=== PATIENT | female | born 1945 | race Caucasian/White ===

== ENCOUNTER 2019-08-23 23:02 | Inpatient (IN) | payer MEDICARE, SELFPAY ==
[2019-08-28] VITALS (11 sets, daily range): BP systolic 153–169; BP diastolic 66–97; PULSE 77–94; RESP 14–29; TEMP 36.4–36.8; O2SAT 93–97; BMI 21.5
[2019-08-28] MEDS: ipratropium-albuterol 3 mL Neb INHALATION ×3 (03:45→22:55)
[2019-08-28 05:32] LABS: Anion Gap 13.3 (5-19); Blood Urea Nitrogen 28 mg/dL (8-23); Carbon Dioxide 30 mmol/L (22-29); Chloride 98 mmol/L (98-107); Glucose 155 mg/dL (74-106); Potassium 5.3 mmol/L (3.5-5.1); Sodium 136 mmol/L (136-145)
[2019-08-28] MEDS: FUROsemide 20 mg Tablet PO (08:46)
[2019-08-28] MEDS: cefTRIAXone 1,000 MG in sodium chloride 0.9% (plus) 50 ML 100 MG IV (08:48)
[2019-08-28] MEDS: aspirin 81 mg Chew Tablet PO (08:49)
[2019-08-28] MEDS: amlodipine 10 mg Tablet PO (08:49)
[2019-08-28] MEDS: levothyroxine 100 mcg Tablet PO (08:51)
[2019-08-28] MEDS: hyDRALAzine 10 mg Tablet 5 MG PO ×2 (08:55→14:35)
[2019-08-28] MEDS: ALPRAZolam 0.25 mg Tablet PO (14:51)
--- NOTE | 2019-08-28 15:24 | PC.SOCIAL ---
IMM Updated Pt & family updated on Pg 2 IMM. Provided a copy to pt. No questions voiced. Signed, dated, & timed original in chart.
--- NOTE | 2019-08-28 18:26 | PM.PN ---
Subjective Subjective: Interval history: Her family felt that she was feeling weaker today. She wakes up for me, states that she is feeling about the same. Denies any complaints at this time. She knows she is in the hospital. Does not remember the current year. Vitals/I&O/Wt Last Vital Signs Temp 98.2 F 08/28/19 18:00 Pulse 92 08/28/19 18:00 Resp 22 H 08/28/19 18:00 BP 169/95 08/28/19 18:00 Pulse Ox 93 08/28/19 18:00 08/28/19 08/28/19 08/28/19 06:59 14:59 22:59 Intake Total 200 / 200 480 / 480 Balance 200 / 200 480 / 480 Weight last 48 hrs Weight 53.524 kg Weight 53.524 kg Weight 53.524 kg Physical Exam Const: COMMON NORMALS: no apparent distress GENERAL APPEARANCE: frail appearing OTHER: Generally weak. HENMT: COMMON NORMALS: oropharynx normal Neck/C-Spine: COMMON NORMALS: no JVD Resp: COMMON NORMALS: normal respiratory effort AUSCULTATION: diminished lung sounds Cardio: COMMON NORMALS: no JVD, regular rhythm, S1 normal heart sound, S2 normal heart sound and no murmurs RHYTHM: regular rhythm HEART SOUNDS: S1 normal and S2 normal GI: COMMON NORMALS: normal to inspection, nondistended, normoactive bowel sounds, soft to palpation and non-tender PALPATION: Yes soft Extremity: COMMON NORMALS: no joint enlargement and no pedal edema Skin: COMMON NORMALS: no rashes or lesions noted GENERAL SKIN EXAM: no rashes or lesions noted Data Labs: Other Labs: All Labs last 24 hrs except CBC/BMP 08/28/19 04:25 Calcium 10.0 A&P Assessment and plan (1) Acute respiratory failure: She was perhaps slightly more confused today. Slightly tremulous. Discussed with family, perhaps secondary to IV steroids. Her respiratory exam is somewhat better today, without wheezing. Still restricted air entry. Discussed with family given mental status may be secondary some adverse effects from steroid will de-escalate to oral prednisone for now. Continue breathing treatments. Continue oxygen support. Continue Rocephin as for UTI. 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 Currently encephalopathy resolved. Some cognitive deficits likely due to multiple prior CVA. Currently perhaps with encephalopathy secondary to UTI and COPD exacerbation. At this time continue aspirin 81 mg, statin. No clear evidence of atrial fibrillation. Has had a few rounds of SVT, however, with discernible P waves. Given elevated risk of bleeding with amyloid angiopathy would like to see clear evidence of A. fib before consideration of initiation of anticoagulation. Discussed this with her and family and they are in agreement. Consider setting up with event monitor on discharge. Poorly controlled hypertension with variable blood pressures, with multiple prior CVA, appears to be her biggest risk factor at this time, also in the setting of amyloid angiopathy. Lisinopril was discontinued due to hyperkalemia. Continues on 10 mg amlodipine. Was started on 5 mg hydralazine 3 times daily, although blood pressures are still on the high side. Will increase hydralazine to 10 mg. Status: Acute Code(s): I63.9 - Cerebral infarction, unspecified; R41.89 - Other symptoms and signs involving cognitive functions and awareness (3) Cerebral amyloid angiopathy: Follow-up with neurology in office. Discussed with her and family regarding concern for risk of bleeding. For now continues on 81 mg aspirin. No clear evidence regarding elevated risk of bleeding with statin. So far no clear evidence of atrial fibrillation in the hospital. Status: Acute Code(s): E85.4 - Organ-limited amyloidosis; I68.0 - Cerebral amyloid angiopathy (4) UTI (urinary tract infection): Continue Rocephin, follow-up urine culture. Status: Acute Code(s): N39.0 - Urinary tract infection, site not specified (5) Dysphagia: Suspect likely secondary to multiple prior CVA. Continue dysphagia diet. Status: Acute Code(s): R13.10 - Dysphagia, unspecified (6) COPD with exacerbation: At home on around 2 L of oxygen. Here requiring about 4 L. With poor air entry. Wheezing on exam, although wheezing is better today. Treatment as above. Status: Acute Code(s): J44.1 - Chronic obstructive pulmonary disease with (acute) exacerbation (7) Liver lesion: Small round hypodense liver lesions difficult to characterize. Would benefit from nonemergent follow-up. Status: Acute Code(s): K76.9 - Liver disease, unspecified (8) Adrenal nodule: 2.3 cm left adrenal gland. Would benefit from follow-up after discharge. Status: Acute Code(s): E27.8 - Other specified disorders of adrenal gland Additional A&P Information Additional A&P Information: Hyperkalemia: Lisinopril held. With mild improvement today. Monitor potassium. Will change to low potassium diet. Right eye conjunctivitis: Resolved Hip and back pain: No evidence of fracture Attestations Medical Necessity Statement*: Continue admission for assessment management of acute respiratory failure, COPD exacerbation, optimization of management of poorly controlled hypertension in the setting of multiple prior CVA and amyloid angiopathy. Coding Level of Care Code Acute Salon Coordinator for [facility] Diagnoses Acute respiratory failure J96.00 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 Cerebral amyloid angiopathy E85.4; I68.0 UTI (urinary tract infection) N39.0 Dysphagia R13.10 COPD with exacerbation J44.1 Liver lesion K76.9 Adrenal nodule E27.8
[2019-08-28] MEDS: atorvastatin 40 mg Tablet PO (22:00)
[2019-08-28] MEDS: hyDRALAzine 10 mg Tablet PO (22:00)
[2019-08-28] MEDS: enoxaparin 40 mg/0.4 mL Syringe SUBCUT (23:12)
[2019-08-29] VITALS (11 sets, daily range): BP systolic 140–146; BP diastolic 58–73; PULSE 78–116; RESP 18–28; TEMP 36.4–36.8; O2SAT 92–98
[2019-08-29] MEDS: ipratropium-albuterol 3 mL Neb INHALATION ×3 (03:24→15:51)
[2019-08-29 04:12] LABS: Basophils % 0.1 %; Hematocrit 41.1 % (37.0-47.0); Hemoglobin 12.3 g/dL (11.5-15.3); Lymphocytes # 0.2 10^3/uL (0.8-4.8); Lymphocytes % 2.1 %; Mean Corpuscular HGB Conc 29.9 g/dL (30.0-36.0); Mean Corpuscular Hemoglobin 28.5 pg (28.0-34.0); Mean Corpuscular Volume 95.1 fL (81-99); Mean Platelet Volume 11.5 fL (7.4-10.4); Monocytes # 0.5 10^3/uL (0.2-0.9); Monocytes % 4.1 %; Neutrophils # 10.4 10^3/uL (1.8-7.7); Neutrophils % 93.3 %; Nucleated Red Blood Cells % 0 %; Platelet Count 312 10^3/cmm (130-400); Red Blood Count 4.32 10^6/uL (4.1-5.3); Red Cell Distribution Width 12.6 % (12.1-15.1); White Blood Count 11.2 10^3/uL (4.0-10.0)
[2019-08-29 04:23] LABS: Add RBC Morph No
[2019-08-29 04:35] LABS: Blood Urea Nitrogen 29 mg/dL (8-23); Calcium 9.7 mg/Dl (8.8-10.2)
[2019-08-29 05:18] LABS: Anion Gap 17.8 (5-19); Carbon Dioxide 28 mmol/L (22-29); Chloride 96 mmol/L (98-107); Glucose 129 mg/dL (74-106); Potassium 4.8 mmol/L (3.5-5.1); Sodium 137 mmol/L (136-145)
[2019-08-29] MEDS: FUROsemide 20 mg Tablet PO (09:26)
[2019-08-29] MEDS: cefTRIAXone 1,000 MG in sodium chloride 0.9% (plus) 50 ML 100 MG IV (09:27)
[2019-08-29] MEDS: amlodipine 10 mg Tablet PO (09:28)
[2019-08-29] MEDS: hyDRALAzine 10 mg Tablet PO ×2 (09:29→14:14)
[2019-08-29] MEDS: levothyroxine 100 mcg Tablet PO (09:29)
[2019-08-29] MEDS: aspirin 81 mg Chew Tablet PO (09:29)
[2019-08-29] MEDS: predniSONE 20 mg Tablet 40 MG PO (09:29)
--- NOTE | 2019-08-29 14:07 | PM.DCS ---
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 Per later discussions with family she has been having some forgetfulness recently, however, usually has been oriented x3, and recognizing family members. Symptoms reportedly started on the day of admission and progressed. Due to unclear cause of acute encephalopathy she underwent additional assessment with thyroid function, initial urine studies, being unremarkable, although with leukocytosis on presentation of 17.4. Shortness of breath thought to be possibly secondary to exacerbation of COPD versus CHF with elevated BNP on presentation. CT chest showed no PE, but findings suggestive of pulmonary hypertension. Moderate to severe centrilobular emphysema. Incidentally found to have small round hypodense liver lesions as well as 2.2 cm left adrenal nodule. Atherosclerosis and coronary disease. Lumbar spine CT without fracture. CT C-spine without acute findings. Mild anterolisthesis C3 over C4. Kyphosis. Head CT without acute abnormality. Right hip x-ray without fracture. Echocardiogram was performed with finding of normal EF, mild MR. blood pressure was found elevated during the hospitalization. On presentation BP 226 systolic. At home she takes hydralazine. In the hospital amlodipine and lisinopril were added. Lisinopril was later discontinued due to progression to hyperkalemia. Cause of encephalopathy was considered secondary to hypertensive urgency on presentation. Due to persistent episodes of confusion, hypertension was evaluated by MRI of the brain which showed multiple remote infarcts including right cerebellar hemisphere, bilateral thalami, and lacunar infarcts of left cerebellar hemisphere and left caudate nucleus with noted evidence of chronic amyloid angiopathy, chronic extensive small vessel ischemic changes, cerebral and cerebellar atrophy. Carotid ultrasound showed bilateral nonsurgically significant atherosclerotic plaques. Urine culture was eventually growing a gram-negative kylah for which she was started on Rocephin, confirmed to be pansensitive E. coli. Her blood pressures gradually improved. With treatment her mental status gradually improved as well. She remained generally weak, also with hypoxia, persistently requiring 3-4 L of oxygen, worse at home usually needs only to. With findings of diminished air entry on exam, wheezing, steroids were added back on, initially IV, subsequently switched to prednisone, she continued breathing treatments. All of that diagnostic findings were discussed with patient and her family. She has continued on 81 mg aspirin. High intensity statin was added as there is no convincing evidence of increased risk of bleeding with amyloid angiopathy. She was monitored on telemetry with noted several episodes of short runs of SVT, however, with noted P waves, and no clear evidence of atrial fibrillation. Discussing multiple CVA with family as well as brief episodes of SVT. We discussed about risk of bleeding with amyloid angiopathy with increasing dose of aspirin or adding a second antiplatelet agent. Similarly without convincing evidence of AFib she would be at risk of bleeding without sufficient evidence of benefit. We will set her up with an event monitor to assess for paroxysmal episodes of atrial fibrillation. As discussed with her and family at this time the primary risk factor that needs attention is definitely her hypertension, with blood pressures that have been running in 160s-170s despite treatment in the hospital. In addition to amlodipine she was started on 5 mg hydralazine 3 times daily which she tolerated, and the dose was increased to 10 mg subsequently with good improvement in blood pressures down to 130s-140s systolic. She will complete a course of Levaquin for UTI and COPD exacerbation. Prednisone taper for COPD. During the hospitalization she was also noted to have dysphagia for which she was assessed by speech therapy with recommendation for chopped diet with nectar thick liquids. Due to multiple CVA and amyloid angiopathy we will arrange for follow-up for her with neurology. She will also need follow-up imaging of the incidentally noted hypodense liver lesions and left adrenal nodule. Physical Exam Const: COMMON NORMALS: no apparent distress EXAM LIMITATIONS: other limitations (Generally weak) GENERAL APPEARANCE: frail appearing HENMT: COMMON NORMALS: oropharynx normal Neck/C-Spine: COMMON NORMALS: no JVD Resp: COMMON NORMALS: normal respiratory effort AUSCULTATION: diminished lung sounds (But significantly better today compared to yesterday. No wheezing.) Cardio: COMMON NORMALS: no JVD, regular rhythm, S1 normal heart sound, S2 normal heart sound and no murmurs RHYTHM: regular rhythm HEART SOUNDS: S1 normal and S2 normal GI: COMMON NORMALS: normal to inspection, nondistended, normoactive bowel sounds, soft to palpation and non-tender PALPATION: Yes soft Extremity: COMMON NORMALS: no joint enlargement and no pedal edema Skin: COMMON NORMALS: no rashes or lesions noted GENERAL SKIN EXAM: no rashes or lesions noted Discharge Data Data Completed and Pending: Labs from last 24 hours 08/29/19 08/29/19 03:25 03:25 WBC 11.2 H RBC 4.32 Hgb 12.3 Hct 41.1 MCV 95.1 MCH 28.5 MCHC 29.9 L RDW 12.6 Plt Count 312 MPV 11.5 H Neut % (Auto) 93.3 Lymph % (Auto) 2.1 Morrill % (Auto) 4.1 Eos % (Auto) 0.0 Baso % (Auto) 0.1 Neut # (Auto) 10.4 H Lymph # (Auto) 0.2 L Morrill # (Auto) 0.5 Eos # (Auto) 0.0 Baso # (Auto) 0.0 Nucleated RBC % (a uto) 0 Nucleated RBCs # 0.0 Sodium 137 Potassium 4.8 Chloride 96 L Carbon Dioxide 28 Anion Gap 17.8 BUN 29 H Creatinine 0.6 Glucose 129 H Calcium 9.7 Vitals: Last Vital Signs Temp 98.2 F 08/29/19 11:37 Pulse 116 H 08/29/19 11:37 Resp 18 08/29/19 11:37 BP 146/58 08/29/19 11:37 Pulse Ox 92 08/29/19 11:37 Discharge Plan Discharge Patient Disposition: [facility] Condition: Stable Prescriptions: New amlodipine 10 mg Tablet 10 mg PO DAILY Qty: 30 RF: 0 furosemide 20 mg Tablet 20 mg PO DAILY@0800 PRN (Reason: Edema) Qty: 15 RF: 0 prednisone 20 mg Tablet 40 mg PO DAILY Qty: 5 RF: 0 aspirin 81 mg Tablet,Chewable 81 mg PO DAILY Qty: 30 RF: 0 atorvastatin 40 mg Tablet 40 mg PO BEDTIME Qty: 30 RF: 0 ipratropium-albuterol 0.5 mg-3 mg(2.5 mg base)/3 mL Solution For Nebulization 3 ml inhalation Q6H.RESPIRATORY Qty: 150 RF: 0 Continued hydralazine 10 mg tablet 10 mg PO TID RF: 0 levothyroxine 100 mcg tablet 100 mcg PO DAILY RF: 0 ProAir HFA 90 mcg/actuation HFA aerosol inhaler 2 puff INHALATION Q4H PRN (Reason: Shortness Of Breath) RF: 0 Bevespi Aerosphere 9-4.8 mcg HFA aerosol inhaler 2 puff INHALATION BID RF: 0 Discharge Orders: Discharge Order (Routine); Ordered 08/29/19 Ordered By: Job Parker Other Ambulatory Orders: [place] 30 day event monitor (Routine) Timeframe: 21 Days Facility: [facility] - Location: Card[facility] Diagnostic [facility] Ordered By: Job Parker Referrals: SNF, PCP [Other] - 4-7 days NEUROSCIENCE PROVIDERS [Provider Group] - 1 week (A) [facility] [Outside] Discharge Diet: Dysphagia, chopped, nectar thick Activity Restrictions/Additional Instructions: Please refer for MRI abdomen w/wo contrast for follow up of hypodense liver lesions and adrenal nodule. Results to PCP. Fall precautions. Aspiration precautions. Please continue dysphagia diet. Continue speech therapy follow-up. Physical therapy, occupational therapy. 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
--- NOTE | 2019-08-30 13:32 | PC.RESP ---
Pt given information for Pulmonary Rehab
== END 2019-08-29 17:20 | disposition skilled nursing facility (03) | DRG 190 ==
PROVIDERS: Admitting Provider Internal Medicine; Family Provider Family Medicine; PCP Family Medicine; Referring Provider Internal Medicine; Visit Provider Internal Medicine
DX: J43.9 Emphysema, unspecified (principal); I50.33 Acute on chronic diastolic (congestive) heart failure; J96.01 Acute respiratory failure with hypoxia; I67.4 Hypertensive encephalopathy; N39.0 Urinary tract infection, site not specified; I47.1 Supraventricular tachycardia; E85.4 Organ-limited amyloidosis; I11.0 Hypertensive heart disease with heart failure; I16.0 Hypertensive urgency; M54.9 Dorsalgia, unspecified; K76.9 Liver disease, unspecified; E27.9 Disorder of adrenal gland, unspecified; E87.6 Hypokalemia; Z66 Do not resuscitate; E78.5 Hyperlipidemia, unspecified; M25.551 Pain in right hip; I69.991 Dysphagia following unspecified cerebrovascular disease; I69.911 Memory deficit following unspecified cerebrovascular disease; R13.10 Dysphagia, unspecified; H10.9 Unspecified conjunctivitis; Z87.891 Personal history of nicotine dependence; B96.20 Unspecified Escherichia coli [E. coli] as the cause of diseases classified elsewhere; Z79.51 Long term (current) use of inhaled steroids; I27.20 Pulmonary hypertension, unspecified; I68.0 Cerebral amyloid angiopathy; Z79.82 Long term (current) use of aspirin
CPT/HCPCS: 36415; 36600; 70450; 70553; 71045; 71275; 72125; 72131; 72220; 73501; 80048; 80053; 80061; 81001; 82088; 82533; 82803; 83036; 83605; 83735; 83880; 84244; 84443; 84484; 85025; 87040; 87086; 87804; 92523; 92526; 92610; 93005; 93306; 93880; 94640; 96374; 97110; 97161; 97167; 97530; 97535; 99285; A9579; J0360; J0696; J1650; J1940; J2920; J2930; J3490; J7512; Q9967

== ENCOUNTER 2019-09-05 18:11 | Inpatient (IN) | payer MEDICARE, SELFPAY ==
[2019-09-05] VITALS (12 sets, daily range): BP systolic 113–160; BP diastolic 59–87; PULSE 68–95; RESP 18–28; TEMP 36.9; O2SAT 93–100; BMI 21.9
--- NOTE | 2019-09-05 16:55 | ED_ITS ---
Entered by Liza Puckett, acting as scribe for LailaAlma HPI - SOB/Dyspnea General: Chief Complaint: Upper Respiratory Infection Stated Complaint: respiratory distress Time Seen by Provider: 09/05/19 16:53 History of Present Illness: HPI Narrative: 74 yo female presents to ED with complaints of shortness of breath. The patient is a resident of a halfway. The patient is currently being treated for pnuemonia. The patient is in severe respiratory distress and all review of systems and physical exam findings are taken from family. MD elicited complaint: shortness of breath Pertinent past history: pneumonia Onset (ago): day(s) Context: recent illness Timing: constant and progressively worsening Severity: severe Exacerbating factors: nothing Relieving factors: nothing Associated symptoms: Deny abdominal pain, chest congestion, chest pain, diaphoresis, dizziness, extremity pain, fever(s), hemoptysis, nausea, orthopnea, palpitations, polydipsia, syncope or vomiting Treatment prior to arrival: oxygen Review of Systems General: Reports: other (negative unless marked) Const: Denies: fever, chills, body aches, fatigue, malaise or diaphoresis Eyes: Denies: change in vision or blurry vision ENMT: Denies: throat pain, painful swallowing, hoarseness, ear pain, ear discharge, Change in hearing or nasal discharge Card: Denies: chest pain, palpitations, irregular heart rhythm, syncope, pre- syncope, shortness of breath on exertion or shortness of breath when lying down Resp: Denies: shortness of breath, productive cough, non-productive cough, whe ezing, coughing up blood or chest congestion GI: Denies: abdominal pain, nausea, vomiting, vomiting blood, coffee grounds in vomit, diarrhea, constipation, cramping, blood in stool or black tarry stool : Denies: flank pain, painful urination, urinary frequency, urinary urgency, decreased urine ouput, urinary incontinence or blood in urine Musc: Denies: neck pain, back pain, extremity pain, extremity swelling, joint pain, joint swelling, joint warmth or joint stiffness Skin/Breast: Denies: rash, skin tenderness or yellow skin Neuro: Denies: headache, numbness in extremities, weakness in extremities, changes in sensation, lack of coordination, difficulty walking, dizziness, vertigo or confusion Endo: Denies: excessive thirst, tired all the time, cold intolerance, excessive sweating, flushing or hot flashes Alfredo/Lymph: Denies: easy bruising, easy bleeding, petechiae or enlarged lymph nodes All/Imm: Denies: hives, throat swelling, tongue swelling, facial swelling or acute wheezing PFSH ED PFSH: Statuses (acute, chronic, etc) shown below reflect problem list status as previously entered and may not be historically accurate Medical History (Updated 09/06/19 @ 12:32 by Alma Ulloa) Cerebral amyloid angiopathy (Acute) Congestive heart failure (Acute) Diastolic COPD (chronic obstructive pulmonary disease) (Acute) CVA (cerebral vascular accident) (Acute) Graves disease (Acute) Radioactive iodine therapy in 1996 Hypertension (Acute) Social History Smoking and tobacco status: former smoker Physical Exam Const: EXAM LIMITATIONS: altered mental status GENERAL APPEARANCE: in distress, ill appearing and diaphoretic HENMT: COMMON NORMALS: normocephalic, head/scalp atraumatic, hearing grossly normal bilaterally, external ears normal, EAC's normal, external nose normal and moist oral mucous membranes HEAD & SCALP: normal to inspection, normocephalic and atraumatic FACE & SINUS: normal facial exam and face symmetric NOSE: external nose normal and nares normal EXTERNAL EAR: Yes external ears normal EXTERNAL AUDITORY CANAL: EAC's normal MOUTH: oral and palatal mucosa normal and tongue normal Eye: COMMON NORMALS: PERRL, EOMs intact bilaterally, conjunctivae normal and no scleral icterus GENERAL EYE: normal appearance of both eyes and normal light reflex CONJUNCTIVA: Yes conjunctivae normal SCLERA: sclerae normal CORNEA: Yes corneas normal PUPIL: Yes PERRL DIRECT OPHTHALMOSCOPY: Yes normal light reflex Neck/C-Spine: COMMON NORMALS: full ROM, no lymphadenopathy, supple, no meningeal signs and no JVD GENERAL: Yes normal visual inspection and Yes trachea midline CERVICAL SPINE: Yes cervical ROM normal Chest: COMMONS NORMALS: inspection of chest normal and palpation of chest normal Resp: EFFORT & INSPECTION: Yes tachypneic, Yes respiratory distress, Yes labored and Yes actively coughing AUSCULTATION: crackles, rales, rhonchi, wheezes and diminished lung sounds Cardio: COMMON NORMALS: no JVD, regular rate, regular rhythm, S1 normal heart sound, S2 normal heart sound, no gallops, no clicks, no murmurs and no rub JUGULAR VENOUS DISTENTION: no JVD RATE: regular rate RHYTHM: regular rhythm HEART SOUNDS: S1 normal and S2 normal GI: COMMON NORMALS: soft to palpation, non-tender, no hepatosplenomegaly and no masses INSPECTION: Yes normal to inspection PALPATION: Yes soft and Yes no hepatosplenomegaly : COMMON NORMALS: Yes no CVA tenderness BLADDER/KIDNEY EXAM: Yes no CVA tenderness Back/Pelvis: COMMON NORMALS: no CVA tenderness, thoracic and lumbar spine normal to inspection, no thoracic nor lumbar tenderness and thoraco-lumbar ROM normal Extremity: COMMON NORMALS: normal to inspection, full ROM, normal capillary refill, no joint enlargement, no clubbing, cyanosis or edema and no calf tenderness Neuro: COMMON NORMALS: CN's II-XII intact bilaterally, moves all extremities, no focal motor deficits and no sensory deficits noted MENINGEAL SIGNS: Yes no meningeal signs Psych: COMMON NORMALS: mental status grossly normal, thought process normal, cooperative, affect normal, speech normal and activity/motor behavior normal SPEECH: Yes normal speech THOUGHT PROCESS: normal thought process Skin: COMMON NORMALS: no rashes or lesions noted, skin turgor normal, no jaundice, no petechiae and no mottling GENERAL SKIN EXAM: no rashes or lesions noted and turgor normal Course Vital Signs: Vital signs: Vital Signs Temperature 98.1 F 09/06/19 11:38 Pulse Rate 83 09/06/19 11:36 Respiratory Rate 20 H 09/06/19 11:38 Blood Pressure 138/63 09/06/19 11:36 Pulse Oximetry 96 09/06/19 11:36 MDM - SOB/Dyspnea MDM Narrative: Medical decision making narrative: The patient came in and was doing better with BiPAP and treatments but after removed from BiPAP she got progressively more sleepy and lethargic. Repeat blood gas revealed the patient was hypercapnic so she was placed back on BiPAP and did much better. The case was endorsed to Dr. Mcnair who agrees to come admit the patient to the ICU. Lab Data: Attestation: I reviewed the patient's lab results. Labs: Lab Results 09/05/19 09/05/19 09/05/19 Range/Units 16:28 16:28 16:28 WBC 13.4 H (4.0-10.0) 10^3/ uL RBC 4.80 (4.1-5.3) 10^6/u L Hgb 13.5 (11.5-15.3) g/dL Hct 45.0 (37.0-47.0) % MCV 93.8 (81-99) fL MCH 28.1 (28.0-34.0) pg MCHC 30.0 (30.0-36.0) g/dL RDW 13.2 (12.1-15.1) % Plt Count 397 (130-400) 10^3/c mm MPV 11.4 H (7.4-10.4) fL Neut % (Auto) 95.0 % Lymph % (Auto) 1.8 % [place] % (Auto) 1.0 % Eos % (Auto) 0.0 % Baso % (Auto) 0.1 % Neut # (Auto) 12.7 H (1.8-7.7) 10^3/u L Lymph # (Auto) 0.2 L (0.8-4.8) 10^3/u L [place] # (Auto) 0.1 L (0.2-0.9) 10^3/u L Eos # (Auto) 0.0 (0.0-0.8) 10^3/u L Baso # (Auto) 0.0 (0.0-0.1) 10^3/u L Nucleated RBC % (a uto) 0 % Nucleated RBCs # 0.0 /100WBC PT 12.50 (10.5-13.3) SECO NDS INR 0.91 (0.8-1.2) D-Dimer (0-0.59) ug/mIFE U Specimen Type Sample Site ABG pH (7.35-7.45) ABG pCO2 (35-45) mmHg ABG pO2 (80.0-100.0) mmH g ABG HCO3 (22-26) mmol/L ABG Base Excess (-2.0-2.0) mmol/ L Wali Test Hematocrit (37-47) % O2 Liters/Min % FiO2 % Permaculture Designer ID Sodium 139 (136-145) mmol/L Potassium 4.6 (3.5-5.1) mmol/L Chloride 95 L (98-107) mmol/L Carbon Dioxide 33 H (22-29) mmol/L Anion Gap 15.6 (5-19) BUN 18 (8-23) mg/dL Creatinine 0.5 (0.5-0.9) mg/dL Glucose 128 H (74-106) mg/dL POC Glucose (70-110) mg/dL Lactic Acid (0.5-2.2) mmol/L Calcium 9.7 (8.8-10.2) mg/Dl Magnesium 2.7 H (1.7-2.3) mg/dL Total Bilirubin 0.3 (0.15-1.2) mg/dL AST 19 (0-32) U/L ALT 22 (0-33) U/L Alkaline Phosphata se 118 H (35-105) IU/L Troponin I 6 Hour (0-10) ng/L Troponin T Baselin e (0-10) ng/mL Troponin T 120 Min sun'aq (0-10) ng/mL Delta Troponin T (0-10) ABS# NT-Pro-B Natriuret Pep 316 H (0-125) pg/mL Total Protein 7.3 (6.6-8.7) g/dL Albumin 4.3 (3.5-5.2) g/dL Globulin 3.0 (1.3-4.6) g/dL Urine Color (Yellow) Urine Appearance (CLEAR) Urine pH (5-7) Ur Specific Gravit y (1.005-1.030) Urine Protein (Negative) Urine Glucose (UA) (Normal) Urine Ketones (Negative) Urine Occult Blood (Negative) Urine Nitrate (Negative) Urine Bilirubin (NEGATIVE) Urine Urobilinogen (Negative) mg/dL Ur Leukocyte Desirae ase (Negative) Urine RBC (0-2) /hpf Urine WBC (0-5) /hpf Ur Squamous Epith Cells (0-5) Urine Bacteria (NONE) Influenza Type A A g (Negative) POC Influenza B Ag (Negative) 09/05/19 09/05/19 09/05/19 Range/Units 16:28 16:28 17:26 WBC (4.0-10.0) 10^3/ uL RBC (4.1-5.3) 10^6/u L Hgb (11.5-15.3) g/dL Hct (37.0-47.0) % MCV (81-99) fL MCH (28.0-34.0) pg MCHC (30.0-36.0) g/dL RDW (12.1-15.1) % Plt Count (130-400) 10^3/c mm MPV (7.4-10.4) fL Neut % (Auto) % Lymph % (Auto) % [place] % (Auto) % Eos % (Auto) % Baso % (Auto) % Neut # (Auto) (1.8-7.7) 10^3/u L Lymph # (Auto) (0.8-4.8) 10^3/u L [place] # (Auto) (0.2-0.9) 10^3/u L Eos # (Auto) (0.0-0.8) 10^3/u L Baso # (Auto) (0.0-0.1) 10^3/u L Nucleated RBC % (a uto) % Nucleated RBCs # /100WBC PT (10.5-13.3) SECO NDS INR (0.8-1.2) D-Dimer 0.62 H (0-0.59) ug/mIFE U Specimen Type Arterial Sample Site Radial, right ABG pH 7.36 (7.35-7.45) ABG pCO2 63.2 H* (35-45) mmHg ABG pO2 157.0 H* (80.0-100.0) mmH g ABG HCO3 35.9 H (22-26) mmol/L ABG Base Excess 8.1 H (-2.0-2.0) mmol/ L Wali Test Pos Hematocrit 41.8 (37-47) % O2 Liters/Min 4.0 % FiO2 % Permaculture Designer ID [id number] Sodium (136-145) mmol/L Potassium (3.5-5.1) mmol/L Chloride (98-107) mmol/L Carbon Dioxide (22-29) mmol/L Anion Gap (5-19) BUN (8-23) mg/dL Creatinine (0.5-0.9) mg/dL Glucose (74-106) mg/dL POC Glucose (70-110) mg/dL Lactic Acid (0.5-2.2) mmol/L Calcium (8.8-10.2) mg/Dl Magnesium (1.7-2.3) mg/dL Total Bilirubin (0.15-1.2) mg/dL AST (0-32) U/L ALT (0-33) U/L Alkaline Phosphata se (35-105) IU/L Troponin I 6 Hour (0-10) ng/L Troponin T Baselin e 22 H (0-10) ng/mL Troponin T 120 Min sun'aq (0-10) ng/mL Delta Troponin T (0-10) ABS# NT-Pro-B Natriuret Pep (0-125) pg/mL Total Protein (6.6-8.7) g/dL Albumin (3.5-5.2) g/dL Globulin (1.3-4.6) g/dL Urine Color (Yellow) Urine Appearance (CLEAR) Urine pH (5-7) Ur Specific Gravit y (1.005-1.030) Urine Protein (Negative) Urine Glucose (UA) (Normal) Urine Ketones (Negative) Urine Occult Blood (Negative) Urine Nitrate (Negative) Urine Bilirubin (NEGATIVE) Urine Urobilinogen (Negative) mg/dL Ur Leukocyte Desirae ase (Negative) Urine RBC (0-2) /hpf Urine WBC (0-5) /hpf Ur Squamous Epith Cells (0-5) Urine Bacteria (NONE) Influenza Type A A g (Negative) POC Influenza B Ag (Negative) 09/05/19 09/05/19 09/05/19 Range/Units 17:33 17:45 17:45 WBC (4.0-10.0) 10^3/ uL RBC (4.1-5.3) 10^6/u L Hgb (11.5-15.3) g/dL Hct (37.0-47.0) % MCV (81-99) fL MCH (28.0-34.0) pg MCHC (30.0-36.0) g/dL RDW (12.1-15.1) % Plt Count (130-400) 10^3/c mm MPV (7.4-10.4) fL Neut % (Auto) % Lymph % (Auto) % [place] % (Auto) % Eos % (Auto) % Baso % (Auto) % Neut # (Auto) (1.8-7.7) 10^3/u L Lymph # (Auto) (0.8-4.8) 10^3/u L [place] # (Auto) (0.2-0.9) 10^3/u L Eos # (Auto) (0.0-0.8) 10^3/u L Baso # (Auto) (0.0-0.1) 10^3/u L Nucleated RBC % (a uto) % Nucleated RBCs # /100WBC PT (10.5-13.3) SECO NDS INR (0.8-1.2) D-Dimer (0-0.59) ug/mIFE U Specimen Type Sample Site ABG pH (7.35-7.45) ABG pCO2 (35-45) mmHg ABG pO2 (80.0-100.0) mmH g ABG HCO3 (22-26) mmol/L ABG Base Excess (-2.0-2.0) mmol/ L Wali Test Hematocrit (37-47) % O2 Liters/Min % FiO2 % Permaculture Designer ID Sodium (136-145) mmol/L Potassium (3.5-5.1) mmol/L Chloride (98-107) mmol/L Carbon Dioxide (22-29) mmol/L Anion Gap (5-19) BUN (8-23) mg/dL Creatinine (0.5-0.9) mg/dL Glucose (74-106) mg/dL POC Glucose (70-110) mg/dL Lactic Acid 0.9 (0.5-2.2) mmol/L Calcium (8.8-10.2) mg/Dl Magnesium (1.7-2.3) mg/dL Total Bilirubin (0.15-1.2) mg/dL AST (0-32) U/L ALT (0-33) U/L Alkaline Phosphata se (35-105) IU/L Troponin I 6 Hour (0-10) ng/L Troponin T Baselin e (0-10) ng/mL Troponin T 120 Min sun'aq (0-10) ng/mL Delta Troponin T (0-10) ABS# NT-Pro-B Natriuret Pep (0-125) pg/mL Total Protein (6.6-8.7) g/dL Albumin (3.5-5.2) g/dL Globulin (1.3-4.6) g/dL Urine Color Straw (Yellow) Urine Appearance Clear (CLEAR) Urine pH 5 (5-7) Ur Specific Gravit y 1.010 (1.005-1.030) Urine Protein Neg (Negative) Urine Glucose (UA) Norm (Normal) Urine Ketones Negative (Negative) Urine Occult Blood Neg (Negative) Urine Nitrate Negative (Negative) Urine Bilirubin Neg (NEGATIVE) Urine Urobilinogen Norm (Negative) mg/dL Ur Leukocyte Desirae ase Negative (Negative) Urine RBC None (0-2) /hpf Urine WBC 0-4 H (0-5) /hpf Ur Squamous Epith Cells 0-4 H (0-5) Urine Bacteria Trace (NONE) Influenza Type A A g Negative (Negative) POC Influenza B Ag Negative (Negative) 09/05/19 09/05/19 09/05/19 Range/Units 18:14 18:31 22:03 WBC (4.0-10.0) 10^3/ uL RBC (4.1-5.3) 10^6/u L Hgb (11.5-15.3) g/dL Hct (37.0-47.0) % MCV (81-99) fL MCH (28.0-34.0) pg MCHC (30.0-36.0) g/dL RDW (12.1-15.1) % Plt Count (130-400) 10^3/c mm MPV (7.4-10.4) fL Neut % (Auto) % Lymph % (Auto) % [place] % (Auto) % Eos % (Auto) % Baso % (Auto) % Neut # (Auto) (1.8-7.7) 10^3/u L Lymph # (Auto) (0.8-4.8) 10^3/u L [place] # (Auto) (0.2-0.9) 10^3/u L Eos # (Auto) (0.0-0.8) 10^3/u L Baso # (Auto) (0.0-0.1) 10^3/u L Nucleated RBC % (a uto) % Nucleated RBCs # /100WBC PT (10.5-13.3) SECO NDS INR (0.8-1.2) D-Dimer (0-0.59) ug/mIFE U Specimen Type Arterial Sample Site Radial, right ABG pH 7.31 L (7.35-7.45) ABG pCO2 71.7 H* (35-45) mmHg ABG pO2 96.2 (80.0-100.0) mmH g ABG HCO3 36.1 H (22-26) mmol/L ABG Base Excess 7.5 H (-2.0-2.0) mmol/ L Wali Test Pos Hematocrit 37.8 (37-47) % O2 Liters/Min % FiO2 % Permaculture Designer ID [id number] Sodium (136-145) mmol/L Potassium (3.5-5.1) mmol/L Chloride (98-107) mmol/L Carbon Dioxide (22-29) mmol/L Anion Gap (5-19) BUN (8-23) mg/dL Creatinine (0.5-0.9) mg/dL Glucose (74-106) mg/dL POC Glucose 121 (70-110) mg/dL Lactic Acid (0.5-2.2) mmol/L Calcium (8.8-10.2) mg/Dl Magnesium (1.7-2.3) mg/dL Total Bilirubin (0.15-1.2) mg/dL AST (0-32) U/L ALT (0-33) U/L Alkaline Phosphata se (35-105) IU/L Troponin I 6 Hour (0-10) ng/L Troponin T Baselin e (0-10) ng/mL Troponin T 120 Min sun'aq 18.4 H (0-10) ng/mL Delta Troponin T -3.6 L (0-10) ABS# NT-Pro-B Natriuret Pep (0-125) pg/mL Total Protein (6.6-8.7) g/dL Albumin (3.5-5.2) g/dL Globulin (1.3-4.6) g/dL Urine Color (Yellow) Urine Appearance (CLEAR) Urine pH (5-7) Ur Specific Gravit y (1.005-1.030) Urine Protein (Negative) Urine Glucose (UA) (Normal) Urine Ketones (Negative) Urine Occult Blood (Negative) Urine Nitrate (Negative) Urine Bilirubin (NEGATIVE) Urine Urobilinogen (Negative) mg/dL Ur Leukocyte Desirae ase (Negative) Urine RBC (0-2) /hpf Urine WBC (0-5) /hpf Ur Squamous Epith Cells (0-5) Urine Bacteria (NONE) Influenza Type A A g (Negative) POC Influenza B Ag (Negative) 09/05/19 09/05/19 Range/Units 22:35 23:07 WBC (4.0-10.0) 10^3/ uL RBC (4.1-5.3) 10^6/u L Hgb (11.5-15.3) g/dL Hct (37.0-47.0) % MCV (81-99) fL MCH (28.0-34.0) pg MCHC (30.0-36.0) g/dL RDW (12.1-15.1) % Plt Count (130-400) 10^3/c mm MPV (7.4-10.4) fL Neut % (Auto) % Lymph % (Auto) % [place] % (Auto) % Eos % (Auto) % Baso % (Auto) % Neut # (Auto) (1.8-7.7) 10^3/u L Lymph # (Auto) (0.8-4.8) 10^3/u L [place] # (Auto) (0.2-0.9) 10^3/u L Eos # (Auto) (0.0-0.8) 10^3/u L Baso # (Auto) (0.0-0.1) 10^3/u L Nucleated RBC % (a uto) % Nucleated RBCs # /100WBC PT (10.5-13.3) SECO NDS INR (0.8-1.2) D-Dimer (0-0.59) ug/mIFE U Specimen Type Arterial Sample Site Radial, right ABG pH 7.35 (7.35-7.45) ABG pCO2 64.8 H* (35-45) mmHg ABG pO2 69.0 L (80.0-100.0) mmH g ABG HCO3 35.7 H (22-26) mmol/L ABG Base Excess 7.9 H (-2.0-2.0) mmol/ L Wali Test Pos Hematocrit 38.7 (37-47) % O2 Liters/Min % FiO2 30.0 % Permaculture Designer ID [email or web address] Sodium (136-145) mmol/L Potassium (3.5-5.1) mmol/L Chloride (98-107) mmol/L Carbon Dioxide (22-29) mmol/L Anion Gap (5-19) BUN (8-23) mg/dL Creatinine (0.5-0.9) mg/dL Glucose (74-106) mg/dL POC Glucose (70-110) mg/dL Lactic Acid (0.5-2.2) mmol/L Calcium (8.8-10.2) mg/Dl Magnesium (1.7-2.3) mg/dL Total Bilirubin (0.15-1.2) mg/dL AST (0-32) U/L ALT (0-33) U/L Alkaline Phosphata se (35-105) IU/L Troponin I 6 Hour 18.80 H (0-10) ng/L Troponin T Baselin e (0-10) ng/mL Troponin T 120 Min sun'aq (0-10) ng/mL Delta Troponin T (0-10) ABS# NT-Pro-B Natriuret Pep (0-125) pg/mL Total Protein (6.6-8.7) g/dL Albumin (3.5-5.2) g/dL Globulin (1.3-4.6) g/dL Urine Color (Yellow) Urine Appearance (CLEAR) Urine pH (5-7) Ur Specific Gravit y (1.005-1.030) Urine Protein (Negative) Urine Glucose (UA) (Normal) Urine Ketones (Negative) Urine Occult Blood (Negative) Urine Nitrate (Negative) Urine Bilirubin (NEGATIVE) Urine Urobilinogen (Negative) mg/dL Ur Leukocyte Desirae ase (Negative) Urine RBC (0-2) /hpf Urine WBC (0-5) /hpf Ur Squamous Epith Cells (0-5) Urine Bacteria (NONE) Influenza Type A A g (Negative) POC Influenza B Ag (Negative) Imaging Data^: CTA Chest: Radiologist's impression: [address] [address] [address] Scan Report Signed Patient: Anay Corona MR#: [id number] : 1945 Acct:[id number] Age/Sex: 74 / F ADM Date: Loc: ER Attending Dr: Ordering Physician: Alma Ulloa DO Date of Service: 09/05/19 Procedure(s): CT angio chest PE protcl [id number] Accession Number(s): [id number] cc: Alma Ulloa DO PROCEDURE INFORMATION: Exam: CT Angiography Chest With Contrast Exam date and time: 09/05/2019 8:27 PM Age: 74 years old Clinical indication: Dyspnea TECHNIQUE: Imaging protocol: Computed tomographic angiography of the chest with intravenous contrast. 3D rendering: MIP and/or 3D reconstructed images were created by the technologist. Total DLP: 969.86 mGy-cm Radiation optimization: All CT scans at this facility use at least one of these dose optimization techniques: automated exposure control; mA and/or kV adjustment per patient size (includes targeted exams where dose is matched to clinical indication); or iterative reconstruction. Contrast material: OMNI 350; Contrast volume: 95 ml; Contrast route: IV; COMPARISON: CTA Chest-Pulmonary Emb [id number] 08/23/2019 9:05 PM FINDINGS: Pulmonary arteries: Normal. No pulmonary emboli. Aorta: Unremarkable. No aortic aneurysm. No aortic dissection. Lungs: Severe centrilobular emphysema. Calcified granuloma in the right upper and left lower lobes. Pleural space: Unremarkable. No pneumothorax. No pleural effusion. Heart: Unremarkable. No cardiomegaly. No pericardial effusion. Liver: 0.9 cm early enhancing nodule in the dome of the right liver lobe. Subcentimeter hepatic cysts. Adrenals: 1.7 cm left adrenal nodule is unchanged. Kidneys and ureters: Old cortical defects in the left kidney. Lymph nodes: Unremarkable. No enlarged lymph nodes. Bones/joints: Unremarkable. No acute fracture. Soft tissues: Unremarkable. CT/CT angio chest PE protcl [id number] IMPRESSION: 1. No evidence for pulmonary embolus. 2. Stable 1.7 cm probable adenoma in the left adrenal gland. This can be further evaluated with dedicated adrenal CT or MR. 3. 0.9 cm probable flash fill hemangioma in the right liver lobe. This can be further evaluated with a three-phase CT of the liver. Radiation Dose CTDIVOL = (mGy): DLP = 969.86 (mGy-cm) Dictated By: Yovani Cody 09/05/19 Discharge Plan Discharge Patient Disposition: Admitted As Inpatient Admit Provider: Jennifer Mcnair Clinical Impression: Acute respiratory failure Condition: Stable Interventions: ED Discharge Assessment Last Done: 09/06/19 03:03 Discharge Date/Time: 09/06/19 03:13 Coding Level of Care Code ED Vp Strategy for Chg Fwpatito The documentation recorded by the Italo fletcher Valerie R, accurately reflects the service I personally performed and the decisions made by Laila oneill Eli N Sep 05, 2019 18:11
--- NOTE | 2019-09-05 16:56 | XR_ITS ---
WS: [id number] Portable AP upright chest, 09/05/2019 Clinical Data: cough Comparison: None. Findings: No nodules, masses or effusions are seen. The heart is normal. The pulmonary vascularity is not increased. No pneumonia or pneumothorax is seen. The aortic arch and descending aorta show minim al tortuosity XR/XR chest 1V portable [id number] Impression: Atherosclerosis.
[2019-09-05] MEDS: ondansetron 2 mg/ML SDV 2 mL 4 MG IVP (17:17)
[2019-09-05] MEDS: ipratropium-albuterol 3 mL Neb 9 ML INHALATION (17:31)
[2019-09-05 17:38] LABS: ABG PH Result 7.36 (7.35-7.45); Arterial Blood Gas Hematocrit 41.8 % (37-47); Base Excess ABG 8.1 mmol/L (-2.0-2.0); Blood Gas Allen Test Pos; Blood Gas Sample Site Radial, right; Blood Gas Sample Type Arterial; HCO3 ABG 35.9 mmol/L (22-26)
[2019-09-05 17:39] LABS: ABG PCO2 63.2 mmHg (35-45)
[2019-09-05 17:45] LABS: Basophils % 0.1 %; Hemoglobin 13.5 g/dL (11.5-15.3); Lymphocytes # 0.2 10^3/uL (0.8-4.8); Lymphocytes % 1.8 %; Mean Corpuscular Hemoglobin 28.1 pg (28.0-34.0); Mean Corpuscular Volume 93.8 fL (81-99); Mean Platelet Volume 11.4 fL (7.4-10.4); Monocytes # 0.1 10^3/uL (0.2-0.9); Neutrophils # 12.7 10^3/uL (1.8-7.7); Nucleated Red Blood Cells % 0 %; Platelet Count 397 10^3/cmm (130-400); Red Cell Distribution Width 13.2 % (12.1-15.1); White Blood Count 13.4 10^3/uL (4.0-10.0)
[2019-09-05 17:49] LABS: INR 0.91 (0.8-1.2)
[2019-09-05 17:55] LABS: Lactic Sepsis W/Reflex 0.9 mmol/L (0.5-2.2)
--- NOTE | 2019-09-05 17:59 | ECG_ITS ---
Measurements Intervals [place] Rate: 86 P: 80 CO: 143 QRS: 64 QRSD: 80 T: 76 QT: 360 QTc: 433 SINUS RHYTHM WITH OCCASIONAL SUPRAVENTRICULAR PREMATURE COMPLEXES Compared to ECG 08/23/2019 19:58:29 Sinus tachycardia no longer present Ventricular premature complex(es) no longer present ST (T wave) deviation no longer present Electronically Signed On 09-05-2019 18:59:31 CHLORINE CELL TENDER by Annabella Aranda M.D. [id number] f
[2019-09-05 18:09] LABS: Alanine Aminotransferase 22 U/L (0-33); Albumin Level 4.3 g/dL (3.5-5.2); Alkaline Phosphatase 118 IU/L (35-105); Anion Gap 15.6 (5-19); Aspartate Amino Transferase 19 U/L (0-32); Blood Urea Nitrogen 18 mg/dL (8-23); Calcium 9.7 mg/Dl (8.8-10.2); Carbon Dioxide 33 mmol/L (22-29); Chloride 95 mmol/L (98-107); Glucose 128 mg/dL (74-106); Magnesium 2.7 mg/dL (1.7-2.3); NT Pro B Type Natriuretic Pept 316 pg/mL (0-125); Potassium 4.6 mmol/L (3.5-5.1); Sodium 139 mmol/L (136-145); Total Bilirubin 0.3 mg/dL (0.15-1.2); Total Protein 7.3 g/dL (6.6-8.7)
[2019-09-05 18:18] LABS: Glucose Point of Care 121 mg/dL (70-110)
[2019-09-05 18:21] LABS: Troponin(5th) Baseline 22 ng/mL (0-10)
[2019-09-05 18:48] LABS: Bilirubin Urine Neg (NEGATIVE); Blood Urine Neg (Negative); Glucose Urine UA Norm (Normal); Ketones Urine Negative (Negative); Nitrate Urine Negative (Negative); Protein Urine Neg (Negative); Urine Appearance Clear (CLEAR); Urine Color Straw (Yellow); pH Urine 5 (5-7)
[2019-09-05 18:49] LABS: Leukocyte Esterase Urine Negative (Negative); Urobilinogen Urine Norm (Negative)
[2019-09-05 18:59] LABS: Add Urine Culture? No; Bacteria Urine TRACE; Squamous Epithelial Cell Urine 0-4 (0-5); WBC Urine 0-4 /hpf (0-5)
[2019-09-05 19:05] LABS: Troponin 5 2HR 18.4 ng/mL (0-10); Troponin 5 2HR Delta -3.6 ABS# (0-10)
[2019-09-05] MEDS: ipratropium-albuterol 3 mL Neb INHALATION (19:15)
[2019-09-05 19:20] LABS: Influenza A by IFA Negative (Negative); Influenza B by IFA Negative (Negative)
--- NOTE | 2019-09-05 19:59 | ECG_ITS ---
Measurements Intervals [place] Rate: 86 P: 87 MD: 145 QRS: 63 QRSD: 82 T: 81 QT: 374 QTc: 448 SINUS RHYTHM WITH OCCASIONAL SUPRAVENTRICULAR PREMATURE COMPLEXES INTERPRETATION BASED ON A DEFAULT AGE OF 40 YEARS Compared to ECG 09/05/2019 18:29:23 No significant changes Electronically Signed On 09-06-2019 14:42:43 JUNIOR SYSTEMS ADMINISTRATOR by Jose Pope M.D. [id number] f
[2019-09-05 20:01] LABS: D Dimer 0.62 ug/mIFEU (0-0.59)
--- NOTE | 2019-09-05 20:09 | CTR_ITS ---
PROCEDURE INFORMATION: Exam: CT Angiography Chest With Contrast Exam date and time: 09/05/2019 8:27 PM Age: 74 years old Clinical indication: Dyspnea TECHNIQUE: Imaging protocol: Computed tomographic angiography of the chest with intravenous contrast. 3D rendering: MIP and/or 3D reconstructed images were created by the technologist. Total DLP: 969.86 mGy-cm Radiation optimization: All CT scans at this facility use at least one of these dose optimization techniques: automated exposure control; mA and/or kV adjustment per patient size (includes targeted exams where dose is matched to clinical indication); or iterative reconstruction. Contrast material: OMNI 350; Contrast volume: 95 ml; Contrast route: IV; COMPARISON: CTA Chest-Pulmonary Emb [id number] 08/23/2019 9:05 PM FINDINGS: Pulmonary arteries: Normal. No pulmonary emboli. Aorta: Unremarkable. No aortic aneurysm. No aortic dissection. Lungs: Severe centrilobular emphysema. Calcified granuloma in the right upper and left lower lobes. Pleural space: Unremarkable. No pneumothorax. No pleural effusion. Heart: Unremarkable. No cardiomegaly. No pericardial effusion. Liver: 0.9 cm early enhancing nodule in the dome of the right liver lobe. Subcentimeter hepatic cysts. Adrenals: 1.7 cm left adrenal nodule is unchanged. Kidneys and ureters: Old cortical defects in the left kidney. Lymph nodes: Unremarkable. No enlarged lymph nodes. Bones/joints: Unremarkable. No acute fracture. Soft tissues: Unremarkable. CT/CT angio chest PE protcl [id number] IMPRESSION: 1. No evidence for pulmonary embolus. 2. Stable 1.7 cm probable adenoma in the left adrenal gland. This can be further evaluated with dedicated adrenal CT or MR. 3. 0.9 cm probable flash fill hemangioma in the right liver lobe. This can be further evaluated with a three-phase CT of the liver. Radiation Dose CTDIVOL = (mGy): DLP = 969.86 (mGy-cm)
[2019-09-05] MEDS: iohexol 350 mg/mL 100 mL Btl 95 ML IV (21:03)
[2019-09-05] MEDS: LORazepam 2 mg/mL INJ 1 mL 1 MG IVP (21:29)
[2019-09-05 22:15] LABS: ABG PCO2 71.7 mmHg (35-45); ABG PH Result 7.31 (7.35-7.45); Arterial Blood Gas Hematocrit 37.8 % (37-47); Base Excess ABG 7.5 mmol/L (-2.0-2.0); Blood Gas Allen Test Pos; Blood Gas Sample Site Radial, right; Blood Gas Sample Type Arterial; HCO3 ABG 36.1 mmol/L (22-26); PO2 ABG 96.2 mmHg (80.0-100.0)
[2019-09-05 23:18] LABS: ABG PCO2 64.8 mmHg (35-45); ABG PH Result 7.35 (7.35-7.45); Arterial Blood Gas Hematocrit 38.7 % (37-47); Base Excess ABG 7.9 mmol/L (-2.0-2.0); Blood Gas Allen Test Pos; Blood Gas Sample Site Radial, right; Blood Gas Sample Type Arterial; HCO3 ABG 35.7 mmol/L (22-26)
--- NOTE | 2019-09-05 23:59 | ECG_ITS ---
Measurements Intervals [place] Rate: 86 P: 87 MD: 145 QRS: 63 QRSD: 82 T: 81 QT: 374 QTc: 448 SINUS RHYTHM WITH OCCASIONAL SUPRAVENTRICULAR PREMATURE COMPLEXES INTERPRETATION BASED ON A DEFAULT AGE OF 40 YEARS Compared to ECG 09/05/2019 18:29:23 No significant changes Electronically Signed On 09-06-2019 14:42:46 PIPELINE SYSTEMS OPERATOR by Jose Pope M.D. [id number]
[2019-09-06] VITALS (34 sets, daily range): BP systolic 84–150; BP diastolic 54–86; PULSE 56–91; RESP 16–25; TEMP 36.7–36.8; O2SAT 94–100
[2019-09-06] MEDS: ipratropium-albuterol 3 mL Neb INHALATION ×4 (03:59→19:46)
[2019-09-06 05:57] LABS: Basophils % 0.1 %; Hematocrit 39.3 % (37.0-47.0); Lymphocytes # 0.2 10^3/uL (0.8-4.8); Mean Corpuscular HGB Conc 30.5 g/dL (30.0-36.0); Mean Corpuscular Hemoglobin 28.5 pg (28.0-34.0); Mean Corpuscular Volume 93.3 fL (81-99); Mean Platelet Volume 10.4 fL (7.4-10.4); Monocytes # 0.2 10^3/uL (0.2-0.9); Monocytes % 2.3 %; Neutrophils % 92.8 %; Nucleated Red Blood Cells % 0 %; Platelet Count 324 10^3/cmm (130-400); Red Blood Count 4.21 10^6/uL (4.1-5.3); Red Cell Distribution Width 13.2 % (12.1-15.1); White Blood Count 9.7 10^3/uL (4.0-10.0)
[2019-09-06 06:30] LABS: Blood Urea Nitrogen 21 mg/dL (8-23); Calcium 9.5 mg/Dl (8.8-10.2); Carbon Dioxide 35 mmol/L (22-29); Chloride 96 mmol/L (98-107); Glucose 139 mg/dL (74-106); Sodium 139 mmol/L (136-145)
--- NOTE | 2019-09-06 07:32 | PM.HP ---
Providers/Chief Complaint Admitting Physician: Jennifer Mcnair MD Primary Care Provider: Unsure, not Sp[place] Chief Complaint: respiratory distress History of Present Illness Anay Corona is a 74 year old female recently hospitalized from August 23 to August 29. She presented to the emergency room with shortness of breath and altered mental status. She came from care home facility. She received some breathing treatments and steroids initially. She subsequently became less responsive. ABG showed some hypercapnia and she was put on BiPAP. In the course of her ER stay she had received some Ativan. At the time of my evaluation patient was minimally responsive to stimuli. According to her family she been coughing more and complaining of her breathing a bit more the last day or so. She is not normally on BiPAP therapy. No report of any fevers or vomiting. A CTA of the chest was done and showed no evidence of PE. She had stable left adrenal adenoma and a 0.9 cm flash fill hemangioma in the right liver lobe. No evidence of acute infiltrate. With can continued hypercapnia and decreased responsiveness she is being admitted to the ICU. Family reports that she required intubation for about a week around a year ago. Review of Systems General: Reports: ROS unobtainable due to medical condition (Beyond what is mentioned above) Medications/Allergies Allergies Allergy/AdvReac Type Severity Reaction Status Date / Time codeine AdvReac Unknown Unverified 09/06/19 05:33 Additional Medication Information Additional Medication Information: Paperwork from [facility] did not reach the floor with the patient and is not known if it was available in the emergency room. Discharge summary from a few days ago showed amlodipine 10 mg daily, Lasix 20 mg daily, 5 days of prednisone 40 mg, 81 mg of aspirin daily, 40 mg atorvastatin at bedtime, breathing treatments as needed, hydralazine 10 mg 3 times a day, levothyroxine 100 mcg daily and 2 inhalers PFSH Acute PFSH: Statuses (acute, chronic, etc) shown below reflect problem list status as previously entered and may not be historically accurate Medical History (Updated 09/06/19 @ 08:19 by Jennifer Mcnair MD) Cerebral amyloid angiopathy (Acute) Congestive heart failure (Acute) Diastolic COPD (chronic obstructive pulmonary disease) (Acute) CVA (cerebral vascular accident) (Acute) Graves disease (Acute) Radioactive iodine therapy in 1996 Hypertension (Acute) Social History Smoking and tobacco status: former smoker Supplemental [facility] Information: Unable to obtain family history and further social due to current mental status Able to obtain surgical history due to current mental status Vitals/I&O/Wt Last Vital Signs Temp 98.5 F 09/05/19 16:47 Pulse 66 09/06/19 06:29 Resp 21 H 09/06/19 06:00 BP 133/77 09/06/19 06:00 Pulse Ox 97 09/06/19 06:29 Weight last 48 hrs Weight 54.431 kg Physical Exam Const: COMMON NORMALS: negative for oriented x3 and negative for alert GENERAL APPEARANCE: lethargic HENMT: COMMON NORMALS: normocephalic, head/scalp atraumatic and moist oral mucous membranes Eye: COMMON NORMALS: PERRL (Sluggish) and EOMs intact bilaterally Neck/C-Spine: COMMON NORMALS: supple Resp: EFFORT & INSPECTION: Yes tachypneic and Yes uses accessory muscles AUSCULTATION: wheezes expiratory wheezes, inspiratory wheezes and upper bilaterally and diminished lung sounds bilateral in the lower lung ashraf Cardio: RATE: tachycardic RHYTHM: regular rhythm GI: COMMON NORMALS: soft to palpation and non-tender Extremity: GENERAL: No edema Skin: COMMON NORMALS: skin turgor normal and no mottling Data Micro: Micro: Microbiology 09/05/19 17:33 Blood Culture - Pr eliminary Blood SPECIMEN [facility] 09/05/19 17:30 Blood Culture - Pr eliminary Blood SPECIMEN [facility] Other Data: Other data: Short CBC 09/05/19 09/06/19 Range/Units 16:28 05:52 WBC 13.4 H 9.7 (4.0-10.0) 10^3/ uL Hgb 13.5 12.0 (11.5-15.3) g/dL Hct 45.0 39.3 (37.0-47.0) % Plt Count 397 324 (130-400) 10^3/c mm BMP 09/05/19 09/06/19 16:28 05:52 Sodium 139 139 Potassium 4.6 5.0 Chloride 95 L 96 L Carbon Dioxide 33 H 35 H BUN 18 21 Creatinine 0.5 0.6 Glucose 128 H 139 H Calcium 9.7 9.5 Liver Function 09/05/19 Range/Units 16:28 Total Bilirubin 0.3 (0.15-1.2) mg/dL AST 19 (0-32) U/L ALT 22 (0-33) U/L Alkaline Phosphata se 118 H (35-105) IU/L Albumin 4.3 (3.5-5.2) g/dL Urine 09/05/19 Range/Units 17:45 Urine Color Straw (Yellow) Urine Appearance Clear (CLEAR) Urine pH 5 (5-7) Ur Specific Gravit y 1.010 (1.005-1.030) Urine Protein Neg (Negative) Urine Glucose (UA) Norm (Normal) A&P Assessment and plan (1) Acute respiratory failure: Status: Acute Qualifiers: Respiratory failure complication: hypoxia and hypercapnia Qualified Code(s): J96.01 - Acute respiratory failure with hypoxia; J96.02 - Acute respiratory failure with hypercapnia Code(s): J96.00 - Acute respiratory failure, unspecified whether with hypoxia or hypercapnia (2) COPD (chronic obstructive pulmonary disease): Status: Acute Qualifiers: COPD type: COPD with acute exacerbation Qualified Code(s): J44.1 - Chronic obstructive pulmonary disease with (acute) exacerbation Code(s): J44.9 - Chronic obstructive pulmonary disease, unspecified (3) Dysphagia: Status: Acute Qualifiers: Dysphagia type: oropharyngeal phase Qualified Code(s): R13.12 - Dysphagia, oropharyngeal phase Code(s): R13.10 - Dysphagia, unspecified (4) 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): Status: Acute Code(s): I63.9 - Cerebral infarction, unspecified; R41.89 - Other symptoms and signs involving cognitive functions and awareness Additional A&P Information Additional A&P Information: Inpatient admission Continue BiPAP therapy Breathing treatments and steroids Given hypercapnia will need to try to minimize or avoid of possible benzodiazepines in the future Antibiotics Need to clarify what medications she is currently on Lovenox for DVT prophylaxis Consider pulmonology evaluation Dysphagia diet Supportive care otherwise Outpatient follow-up of incidental abnormalities noted on CT imaging Full code Discussed with patient's family in the emergency room prior to their departure Attestations Medical Necessity Statement*: Anticipated stay greater than 2 midnights in a patient with hypercapnic and hypoxic respiratory failure requiring BiPAP. Family reports that she required intubation last time that she had a similar presentation necessitating BiPAP therapy. 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
[2019-09-06] MEDS: enoxaparin 40 mg/0.4 mL Syringe SUBCUT (09:09)
[2019-09-06] MEDS: cefTRIAXone 1,000 MG in sodium chloride 0.9% (plus) 50 ML 100 MG IV (09:10)
[2019-09-06] MEDS: dextrose 5%-sod chloride 0.45% 1,000 ML 75 ML IV ×2 (09:10→21:35)
[2019-09-06] MEDS: levothyroxine 100 mcg Tablet PO (09:12)
[2019-09-06] MEDS: amlodipine 10 mg Tablet PO (09:13)
[2019-09-06] MEDS: aspirin 81 mg Chew Tablet PO (09:13)
[2019-09-06] MEDS: hyDRALAzine 10 mg Tablet PO ×2 (09:13→13:59)
[2019-09-06] MEDS: FUROsemide 10 mg/mL SDV 4mL 40 MG IVP (09:25)
[2019-09-06] MEDS: doxycycline 100 MG in sodium chloride 0.9% (plus) 100 ML IV ×2 (09:57→21:34)
--- NOTE | 2019-09-06 14:38 | PC.NURSE ---
up to bsc assist of 2 unable to comprehend ect o2 sat decreased to 86 and stayed replaced on bipap at this time
[2019-09-06 15:17] LABS: Oxygen Device NC
[2019-09-06 15:18] LABS: Blood Gas Drawn By MB
--- NOTE | 2019-09-06 15:59 | PC.CHAP ---
Pastoral Care Encounter/Spiritual Assessment Type of Contact [] Declined crusher setter visit [] Patient/Family/Request visit [] Outpatient visit [] Follow-up visit [] Physician referral [] Code/Alert [] Routine visit [] Staff referral [] Actively dying [x] Patient sleeping [] Family support [] [] Out of room [] Palliative care [] [] Receiving care in room [] Pre-surgical visit [] Trauma [] Long length of stay [x] ICU visit [] Other: Relational/Emotional Strength [] Patient feels connected with others/family/visitors/staff [] Distress [] Loneliness/isolation [] Abandonment Spirituality of Patient [] Person of Tiffanie [] Attends Congregation of their Tiffanie [] Believes in Prayer [] Reads Bible or Uatsdin materials [] There are Spiritual issues to be addressed Business Process Modeler Interventions [] Prayer [] Active listening [] Non-anxious presence [] Spiritual/emotional support [] Crisis/trauma care [] Spiritual counseling [] Bereavement support [] Provided bereavement packet [] Provided Bible/devotional materials [] Provided toy/stuffed animal, coloring book to patient or family member [] Completed spiritual assessment [] Provided Communion [] Anointing/[place] [] Salvation [] Other: Impact on Illness or Injury [] Angry [] Fearful [] Anxious [] Often cries [] Exhaustion [] Unable to work [] Unable to attend gnosticist [] Unable to walk/stand [] Unable to read [] Unable to drive [] Unable to eat/drink [] Unable to sleep [] Unable to be with family [] Other: Summary Time spent with patient patient is on vent and sleping, Business Process Modeler will revisit. 5 min.
--- NOTE | 2019-09-06 18:34 | PM.PN ---
Subjective Subjective: Interval history: This morning, I remove the BiPAP, spoke to patient, she is alert oriented x1, she remembers her family members, remembers her address, but has short-term memory loss, she does not know why she is here, no family at bedside She has tolerated BiPAP well so far, no signs of acute respiratory distress, no nasal flaring, no retractions, no tachypnea, no fevers. Patient did receive 2 mg of Ativan, which I confirmed with the ER physician, thus possibly some of her confusion might be related to the Ativan, but speaking with the custodial staff she is has chronic dementia. I spoke to patient's custodial this morning, custodial staff states that since she got out of the hospital she has had intermittent shortness of breath, and and family at one time were considering hospice. But given her significant baseline level of functioning before her recent hospitalization, family wanted her hospitalized for her shortness of breath, to see if she would improve. According to custodial, no fevers, no falls, no significant vital abnormalities. She is alert oriented x1 according to custodial staff currently. Vitals/I&O/Wt Last Vital Signs Temp 98.1 F 09/06/19 11:38 Pulse 84 09/06/19 16:00 Resp 22 H 09/06/19 16:00 BP 90/54 09/06/19 16:00 Pulse Ox 97 09/06/19 16:00 09/06/19 09/06/19 09/06/19 06:59 14:59 22:59 Intake Total 400 / 400 0 / 400 Balance 400 / 400 0 / 400 Weight last 48 hrs Weight 54.431 kg Physical Exam Const: COMMON NORMALS: no apparent distress and alert EXAM LIMITATIONS: altered mental status GENERAL APPEARANCE: cooperative and comfortable NUTRITIONAL APPEARANCE: thin ORIENTATION/CONSCIOUSNESS: Yes oriented to person; not oriented to place and not oriented to time HENMT: COMMON NORMALS: normocephalic HEAD & SCALP: normocephalic Eye: COMMON NORMALS: PERRL and EOMs intact bilaterally PUPIL: Yes PERRL Neck/C-Spine: COMMON NORMALS: full ROM, no lymphadenopathy and no JVD Lymph: LYMPHATIC: no lymphadenopathy noted Resp: COMMON NORMALS: normal respiratory effort, no retractions, no use of accessory muscles and clear to auscultation bilaterally AUSCULTATION: clear to auscultation bilaterally Cardio: COMMON NORMALS: no JVD, regular rate, regular rhythm, S1 normal heart sound and S2 normal heart sound RATE: regular rate RHYTHM: regular rhythm HEART SOUNDS: S1 normal and S2 normal GI: COMMON NORMALS: normal to inspection, nondistended, normoactive bowel sounds, soft to palpation, non-tender, no hepatosplenomegaly and no masses PALPATION: Yes soft and Yes no hepatosplenomegaly : COMMON NORMALS: Yes no CVA tenderness BLADDER/KIDNEY EXAM: Yes no CVA tenderness Back/Pelvis: COMMON NORMALS: no CVA tenderness Extremity: COMMON NORMALS: normal capillary refill, no clubbing, cyanosis or edema, no calf tenderness and no pedal edema Neuro: SENSORIUM/ORIENTATION: Yes alert, Yes oriented to person, No oriented to place, No oriented to time and Yes orientation impaired CRANIAL NERVES: Yes other (Unable to follow neurologic exam appropriately at times) Psych: COMMON NORMALS: negative for mental status grossly normal APPEARANCE: Yes grossly normal ATTITUDE: Yes calm MEMORY/COGNITION: Yes memory grossly impaired and Yes cognition grossly impaired Skin: COMMON NORMALS: no rashes or lesions noted GENERAL SKIN EXAM: no rashes or lesions noted Data Micro: Micro: Microbiology 09/05/19 17:33 Blood Culture - Pr eliminary Blood NEGATIVE TO ALEX E 09/05/19 17:30 Blood Culture - Pr eliminary Blood NEGATIVE TO ALEX E A&P Assessment and plan (1) Acute respiratory failure: -Acute respiratory failure secondary to COPD and chronic aspiration pneumonitis -Also to some degree related to Ativan -Currently doing well on BiPAP Plan: Continue nebulizer treatments Continue BiPAP Continue steroid treatments Continue Lasix 40 mg IV once daily Continue doxycycline for anti-inflammatory effect Continue dysphagia diet Status: Acute Qualifiers: Respiratory failure complication: hypoxia and hypercapnia Qualified Code(s): J96.01 - Acute respiratory failure with hypoxia; J96.02 - Acute respiratory failure with hypercapnia Code(s): J96.00 - Acute respiratory failure, unspecified whether with hypoxia or hypercapnia (2) COPD (chronic obstructive pulmonary disease): Status: Acute Qualifiers: COPD type: COPD with acute exacerbation Qualified Code(s): J44.1 - Chronic obstructive pulmonary disease with (acute) exacerbation Code(s): J44.9 - Chronic obstructive pulmonary disease, unspecified (3) Dysphagia: Status: Acute Qualifiers: Dysphagia type: oropharyngeal phase Qualified Code(s): R13.12 - Dysphagia, oropharyngeal phase Code(s): R13.10 - Dysphagia, unspecified (4) 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): -Currently alert oriented x1 -Urine possibly showing a UTI, on Rocephin Status: Acute Code(s): I63.9 - Cerebral infarction, unspecified; R41.89 - Other symptoms and signs involving cognitive functions and awareness Attestations Medical Necessity Statement*: Patient requires continued hospitalization due to acute respiratory failure Coding Level of Care Code Acute Operations Welder for [facility] Fwd Diagnoses Acute respiratory failure J96.01; J96.02 Respiratory failure complication: hypoxia and hypercapnia COPD (chronic obstructive pulmonary disease) J44.1 COPD type: COPD with acute exacerbation Dysphagia R13.12 Dysphagia type: oropharyngeal phase 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
[2019-09-07] VITALS (20 sets, daily range): BP systolic 103–151; BP diastolic 40–88; PULSE 52–99; RESP 15–22; TEMP 36.5–36.7; O2SAT 90–100
[2019-09-07] MEDS: ipratropium-albuterol 3 mL Neb INHALATION ×2 (03:01→08:19)
[2019-09-07 04:24] LABS: Hematocrit 39.2 % (37.0-47.0); Hemoglobin 12.1 g/dL (11.5-15.3); Lymphocytes # 0.2 10^3/uL (0.8-4.8); Lymphocytes % 1.7 %; Mean Corpuscular HGB Conc 30.9 g/dL (30.0-36.0); Mean Corpuscular Hemoglobin 29.4 pg (28.0-34.0); Mean Corpuscular Volume 95.4 fL (81-99); Mean Platelet Volume 10.9 fL (7.4-10.4); Monocytes # 0.2 10^3/uL (0.2-0.9); Monocytes % 1.7 %; Neutrophils # 9.8 10^3/uL (1.8-7.7); Neutrophils % 95.3 %; Nucleated Red Blood Cells % 0 %; Platelet Count 321 10^3/cmm (130-400); Red Blood Count 4.11 10^6/uL (4.1-5.3); Red Cell Distribution Width 13.2 % (12.1-15.1); White Blood Count 10.3 10^3/uL (4.0-10.0)
[2019-09-07 04:48] LABS: Alanine Aminotransferase 16 U/L (0-33); Albumin Level 3.8 g/dL (3.5-5.2); Alkaline Phosphatase 98 IU/L (35-105); Anion Gap 12.3 (5-19); Aspartate Amino Transferase 12 U/L (0-32); Blood Urea Nitrogen 29 mg/dL (8-23); Calcium 9.2 mg/Dl (8.8-10.2); Carbon Dioxide 35 mmol/L (22-29); Chloride 97 mmol/L (98-107); Globulin 2.4 g/dL (1.3-4.6); Glucose 174 mg/dL (74-106); Magnesium 2.6 mg/dL (1.7-2.3); Phosphorus 3.6 mg/dL (2.5-4.5); Potassium 4.3 mmol/L (3.5-5.1); Sodium 140 mmol/L (136-145); Total Bilirubin 0.2 mg/dL (0.15-1.2); Total Protein 6.2 g/dL (6.6-8.7)
[2019-09-07 06:36] LABS: Procalcitonin 0.06 ng/mL (0-0.8)
--- NOTE | 2019-09-07 07:00 | XRR_ITS ---
PROCEDURE INFORMATION: Exam: XR Chest, 1 View Exam date and time: 09/07/2019 5:59 AM Age: 74 years old Clinical indication: Shortness of breath; Additional info: SOB TECHNIQUE: Imaging protocol: XR of the chest Views: 1 view. COMPARISON: CR XR chest 1V portable [id number] 09/05/2019 5:50 PM FINDINGS: Lungs: Likely calcified granuloma right upper lobe. Minor atelectasis or scarring lower lungs. Pleural space: Unremarkable. No pleural effusion. No pneumothorax. Heart/Mediastinum: Cardiac enlargement. Vasculature: Calcified thoracic aorta. Bones/joints: Osteopenia. XR/XR chest 1V portable [id number] IMPRESSION: 1. Stable chest without acute process.
[2019-09-07] MEDS: enoxaparin 40 mg/0.4 mL Syringe SUBCUT (09:04)
[2019-09-07] MEDS: predniSONE 20 mg Tablet 40 MG PO (09:04)
[2019-09-07] MEDS: aspirin 81 mg Chew Tablet PO (09:04)
[2019-09-07] MEDS: levothyroxine 100 mcg Tablet PO (09:04)
[2019-09-07] MEDS: amlodipine 10 mg Tablet PO (09:05)
[2019-09-07] MEDS: doxycycline 100 mg Tablet PO ×2 (09:05→17:24)
[2019-09-07] MEDS: cefTRIAXone 1,000 MG in sodium chloride 0.9% (plus) 50 ML 100 MG IV (09:05)
[2019-09-07] MEDS: FUROsemide 40 mg Tablet PO (09:05)
[2019-09-07] MEDS: hyDRALAzine 10 mg Tablet PO ×3 (10:52→21:13)
--- NOTE | 2019-09-07 15:07 | P.PN_ITS ---
Subjective Subjective: Interval history: Overnight patient had no febrile episodes, did well with the BiPAP, I took off the BiPAP in the morning, placed on 4 L oxygen, patient did well, no respiratory distress, no retractions, no shortness of breath episodes, no shortness of breath complaints, no chest pain complaints. Currently patient is alert oriented x0, does not remember her last name, did not remember her birthday, does remember her son's name, but is quite confused, which seems to be her baseline Vitals/I&O/Wt Last Vital Signs Temp 97.7 F 09/07/19 07:56 Pulse 83 09/07/19 08:25 Resp 18 09/07/19 12:00 BP 118/73 09/07/19 12:00 Pulse Ox 96 09/07/19 12:00 09/07/19 09/07/19 09/07/19 06:59 14:59 22:59 Intake Total 600 / 600 Output Total 525 / 525 Balance -525 / 906.25 600 / 600 Weight last 48 hrs Weight 53.524 kg Weight 54.431 kg Physical Exam Const: COMMON NORMALS: no apparent distress and alert GENERAL APPEARANCE: cooperative and comfortable NUTRITIONAL APPEARANCE: thin Neck/C-Spine: COMMON NORMALS: no JVD Resp: COMMON NORMALS: normal respiratory effort, no retractions, no use of accessory muscles and clear to auscultation bilaterally AUSCULTATION: clear to auscultation bilaterally Cardio: COMMON NORMALS: no JVD, regular rate, regular rhythm, S1 normal heart sound and S2 normal heart sound RATE: regular rate RHYTHM: regular rhythm HEART SOUNDS: S1 normal and S2 normal GI: COMMON NORMALS: soft to palpation, non-tender, no hepatosplenomegaly and no masses PALPATION: Yes soft and Yes no hepatosplenomegaly Extremity: COMMON NORMALS: normal capillary refill, no clubbing, cyanosis or edema, no calf tenderness and no pedal edema Neuro: SENSORIUM/ORIENTATION: Yes alert Data Micro: Micro: Microbiology 09/06/19 10:30 Urine Culture - Pr eliminary Unknown Source 09/05/19 17:33 Blood Culture - Pr eliminary Blood NEGATIVE TO ALEX E 09/05/19 17:30 Blood Culture - Pr eliminary Blood NEGATIVE TO ALEX E A&P Assessment and plan (1) Acute respiratory failure: -Acute respiratory failure secondary to COPD and chronic aspiration pneumonitis -Also to some degree related to Ativan -Currently doing well on nasal cannula Plan: Continue nebulizer treatments Continue BiPAP PRN if required Continue steroid treatments Continue Lasix 40 mg IV once daily Continue doxycycline for anti-inflammatory effect Continue dysphagia diet Status: Acute Qualifiers: Respiratory failure complication: hypoxia and hypercapnia Qualified Code(s): J96.01 - Acute respiratory failure with hypoxia; J96.02 - Acute respiratory failure with hypercapnia Code(s): J96.00 - Acute respiratory failure, unspecified whether with hypoxia or hypercapnia (2) COPD (chronic obstructive pulmonary disease): Status: Acute Qualifiers: COPD type: COPD with acute exacerbation Qualified Code(s): J44.1 - Chronic obstructive pulmonary disease with (acute) exacerbation Code(s): J44.9 - Chronic obstructive pulmonary disease, unspecified (3) Dysphagia: Status: Acute Qualifiers: Dysphagia type: oropharyngeal phase Qualified Code(s): R13.12 - Dysphagia, oropharyngeal phase Code(s): R13.10 - Dysphagia, unspecified (4) 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): -Currently alert oriented x1 -Urine possibly showing a UTI, on Rocephin Status: Acute Code(s): I63.9 - Cerebral infarction, unspecified; R41.89 - Other symptoms and signs involving cognitive functions and awareness Additional A&P Information Additional A&P Information: Will transfer out of ICU Likely to be discharged to retirement tomorrow Attestations Medical Necessity Statement*: She requires continued hospitalization due to altered mental status, acute respiratory failure Coding Level of Care Code Acute Attending Urologist for [facility]ma Diagnoses Acute respiratory failure J96.01; J96.02 Respiratory failure complication: hypoxia and hypercapnia COPD (chronic obstructive pulmonary disease) J44.1 COPD type: COPD with acute exacerbation Dysphagia R13.12 Dysphagia type: oropharyngeal phase 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
--- NOTE | 2019-09-07 18:11 | PC.NURSE ---
transfer to floor at this time
[2019-09-07] MEDS: atorvastatin 40 mg Tablet PO (21:13)
[2019-09-08] VITALS (12 sets, daily range): BP systolic 139–158; BP diastolic 67–76; PULSE 77–93; RESP 16–20; TEMP 36.4–36.9; O2SAT 94–97
[2019-09-08 06:15] LABS: Basophils % 0.1 %; Hematocrit 41.2 % (37.0-47.0); Hemoglobin 12.6 g/dL (11.5-15.3); Lymphocytes # 0.6 10^3/uL (0.8-4.8); Lymphocytes % 4.4 %; Mean Corpuscular HGB Conc 30.6 g/dL (30.0-36.0); Mean Corpuscular Hemoglobin 28.1 pg (28.0-34.0); Mean Platelet Volume 11.2 fL (7.4-10.4); Monocytes % 7.1 %; Neutrophils # 12.6 10^3/uL (1.8-7.7); Neutrophils % 87.4 %; Nucleated Red Blood Cells % 0 %; Platelet Count 370 10^3/cmm (130-400); Red Blood Count 4.48 10^6/uL (4.1-5.3); Red Cell Distribution Width 13.3 % (12.1-15.1); White Blood Count 14.4 10^3/uL (4.0-10.0)
[2019-09-08 06:48] LABS: Procalcitonin 0.06 ng/mL (0-0.8)
[2019-09-08 07:05] LABS: Alanine Aminotransferase 19 U/L (0-33); Albumin Level 4.2 g/dL (3.5-5.2); Alkaline Phosphatase 95 IU/L (35-105); Anion Gap 14.7 (5-19); Aspartate Amino Transferase 16 U/L (0-32); Blood Urea Nitrogen 26 mg/dL (8-23); Calcium 9.6 mg/Dl (8.8-10.2); Carbon Dioxide 33 mmol/L (22-29); Chloride 101 mmol/L (98-107); Globulin 1.9 g/dL (1.3-4.6); Glucose 98 mg/dL (74-106); Magnesium 2.3 mg/dL (1.7-2.3); Potassium 3.7 mmol/L (3.5-5.1); Sodium 145 mmol/L (136-145); Total Bilirubin 0.3 mg/dL (0.15-1.2); Total Protein 6.1 g/dL (6.6-8.7)
[2019-09-08] MEDS: FUROsemide 40 mg Tablet PO (08:21)
[2019-09-08] MEDS: enoxaparin 40 mg/0.4 mL Syringe SUBCUT (08:21)
[2019-09-08] MEDS: predniSONE 20 mg Tablet 40 MG PO (08:21)
[2019-09-08] MEDS: levothyroxine 100 mcg Tablet PO (08:21)
[2019-09-08] MEDS: doxycycline 100 mg Tablet PO ×2 (08:21→17:06)
[2019-09-08] MEDS: amlodipine 10 mg Tablet PO (08:21)
[2019-09-08] MEDS: aspirin 81 mg Chew Tablet PO (08:21)
[2019-09-08] MEDS: hyDRALAzine 10 mg Tablet PO ×3 (08:21→21:35)
[2019-09-08] MEDS: ipratropium-albuterol 3 mL Neb INHALATION (08:27)
[2019-09-08] MEDS: cefTRIAXone 1,000 MG in sodium chloride 0.9% (plus) 50 ML 100 MG IV (10:22)
--- NOTE | 2019-09-08 14:48 | P.PN_ITS ---
Subjective Subjective: Interval history: This morning patient is lying in bed, has no significant complaints, is alert oriented x0, patient's family is at bedside, patient son and , patient son and state that they want patient to be placed on hospice, through [facility] [place], Vitals/I&O/Wt Last Vital Signs Temp 98.4 F 09/08/19 07:35 Pulse 88 09/08/19 08:29 Resp 20 H 09/08/19 08:27 BP 158/71 09/08/19 07:35 Pulse Ox 94 09/08/19 08:27 09/07/19 09/08/19 09/08/19 22:59 06:59 14:59 Intake Total 0 / 650 Balance 0 / 650 Weight last 48 hrs Weight 53.524 kg Weight 53.524 kg Physical Exam Const: COMMON NORMALS: no apparent distress and alert EXAM LIMITATIONS: altered mental status GENERAL APPEARANCE: cooperative and comfortable NUTRITIONAL APPEARANCE: thin Neck/C-Spine: COMMON NORMALS: no JVD Lymph: LYMPHATIC: no lymphadenopathy noted Resp: COMMON NORMALS: normal respiratory effort, no retractions, no use of accessory muscles and clear to auscultation bilaterally AUSCULTATION: clear to auscultation bilaterally Cardio: COMMON NORMALS: no JVD, regular rate, regular rhythm, S1 normal heart sound and S2 normal heart sound RATE: regular rate RHYTHM: regular rhythm HEART SOUNDS: S1 normal and S2 normal GI: COMMON NORMALS: normal to inspection, nondistended, normoactive bowel sounds, soft to palpation, non-tender, no hepatosplenomegaly and no masses PALPATION: Yes soft and Yes no hepatosplenomegaly : COMMON NORMALS: Yes no CVA tenderness BLADDER/KIDNEY EXAM: Yes no CVA tenderness Back/Pelvis: COMMON NORMALS: no CVA tenderness Extremity: COMMON NORMALS: normal capillary refill, no clubbing, cyanosis or edema, no calf tenderness and no pedal edema Neuro: SENSORIUM/ORIENTATION: Yes alert Data Micro: Micro: Microbiology 09/06/19 10:30 Urine Culture - Fi nal Unknown Source A&P Assessment and plan (1) Acute respiratory failure: -Acute respiratory failure secondary to COPD and chronic aspiration pneumonitis -Also to some degree related to Ativan -Currently doing well on nasal cannula Plan: Continue nebulizer treatments Continue BiPAP PRN if required Continue steroid treatments Continue Lasix 40 mg Continue doxycycline for anti-inflammatory effect Continue dysphagia diet Status: Acute Qualifiers: Respiratory failure complication: hypoxia and hypercapnia Qualified Code(s): J96.01 - Acute respiratory failure with hypoxia; J96.02 - Acute respiratory failure with hypercapnia Code(s): J96.00 - Acute respiratory failure, unspecified whether with hypoxia or hypercapnia (2) COPD (chronic obstructive pulmonary disease): Status: Acute Qualifiers: COPD type: COPD with acute exacerbation Qualified Code(s): J44.1 - Chronic obstructive pulmonary disease with (acute) exacerbation Code(s): J44.9 - Chronic obstructive pulmonary disease, unspecified (3) Dysphagia: Status: Acute Qualifiers: Dysphagia type: oropharyngeal phase Qualified Code(s): R13.12 - Dysphagia, oropharyngeal phase Code(s): R13.10 - Dysphagia, unspecified (4) 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): -Currently alert oriented x1 Transitioning to hospice Status: Acute Code(s): I63.9 - Cerebral infarction, unspecified; R41.89 - Other symptoms and signs involving cognitive functions and awareness Additional A&P Information Additional A&P Information: Will transfer out of ICU Likely to be discharged to halfway tomorrow Attestations Medical Necessity Statement*: Patient requires continued hospitalization due to acute respiratory failure, transitioning to hospice Coding Level of Care Code Acute Archivist for Chg Fwd Diagnoses Acute respiratory failure J96.01; J96.02 Respiratory failure complication: hypoxia and hypercapnia COPD (chronic obstructive pulmonary disease) J44.1 COPD type: COPD with acute exacerbation Dysphagia R13.12 Dysphagia type: oropharyngeal phase 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
--- NOTE | 2019-09-08 17:37 | PM.DCS ---
Discharge Providers Date of Admission: 09/06/19 00:17 Date of Discharge: 09/08/19 Attending Provider at Admission: Jennifer Mcnair MD Attending Provider at Discharge: Israel Daniels MD Primary Care Provider: Nick Gómez MD Diagnoses at Discharge Discharge Diagnosis (1) Acute respiratory failure: Status: Acute Qualifiers: Respiratory failure complication: hypoxia and hypercapnia Qualified Code(s): J96.01 - Acute respiratory failure with hypoxia; J96.02 - Acute respiratory failure with hypercapnia (2) COPD (chronic obstructive pulmonary disease): Status: Acute Qualifiers: COPD type: COPD with acute exacerbation Qualified Code(s): J44.1 - Chronic obstructive pulmonary disease with (acute) exacerbation (3) Dysphagia: Status: Acute Qualifiers: Dysphagia type: oropharyngeal phase Qualified Code(s): R13.12 - Dysphagia, oropharyngeal phase (4) 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): Status: Acute Reason for Visit Reason for Visit: Reason For Visit: respiratory distress Hospital Course Discharge Summary: This is a 74-year-old female with a past medical history of dementia, COPD, dysphasia, cognitive deficit due to multiple subcortical cerebral vascular accidents, who presents to the emergency room due to shortness of breath from the residential. Patient was admitted to the ICU for acute on chronic respiratory failure secondary to COPD and chronic aspiration pneumonitis, received nebulizer treatments and BiPAP, steroids, Lasix, antibiotics. Patient clinically improved, her respiratory status improved, patient was moved to general medical floors, was doing well on nasal cannula, was discharged on oral steroids and doxycycline. At baseline patient was overall alert oriented x1, has dementia, has cognitive deficit due to multiple subcortical cerebrovascular accidents, there was no significant changes in patient's mental status from baseline. After discussion with the family, family wanted to proceed with home hospice, patient was referred to [address] [place] [address] hospice, and accepted, patient was discharged with home hospice. Physical Exam Const: COMMON NORMALS: alert NUTRITIONAL APPEARANCE: thin ORIENTATION/CONSCIOUSNESS: Yes oriented to person Neck/C-Spine: COMMON NORMALS: no JVD Lymph: LYMPHATIC: no lymphadenopathy noted Resp: COMMON NORMALS: normal respiratory effort, no retractions, no use of accessory muscles and clear to auscultation bilaterally AUSCULTATION: clear to auscultation bilaterally Cardio: COMMON NORMALS: no JVD, regular rate, regular rhythm, S1 normal heart sound and S2 normal heart sound RATE: regular rate RHYTHM: regular rhythm HEART SOUNDS: S1 normal and S2 normal GI: COMMON NORMALS: normal to inspection, nondistended, normoactive bowel sounds, soft to palpation, non-tender, no hepatosplenomegaly and no masses PALPATION: Yes soft and Yes no hepatosplenomegaly : COMMON NORMALS: Yes no CVA tenderness BLADDER/KIDNEY EXAM: Yes no CVA tenderness Back/Pelvis: COMMON NORMALS: no CVA tenderness Extremity: COMMON NORMALS: normal capillary refill, no clubbing, cyanosis or edema, no calf tenderness and no pedal edema Neuro: SENSORIUM/ORIENTATION: Yes alert and Yes oriented to person Discharge Data Data Completed and Pending: Completed Studies During Hospitalization Category Date Time Status CT angio chest PE protcl [id number] Stat Cat Scan 09/05/19 20:09 Completed XR chest 1V marsha ble [id number] Routine Exams 09/07/19 07:00 Completed XR chest 1V marsha ble [id number] Stat Exams 09/05/19 16:56 Completed Pending at discharge Category Date Time Status Arterial Blood Ga s W/O Coox AM LABS Lab 09/07/19 04:00 Ordered Blood Culture Sta t Lab 09/05/19 17:33 Results Complete Blood Co unt w/Auto AM LABS Lab 09/09/19 04:00 Ordered Comprehensive Met abolic Panel AM LA BS Lab 09/09/19 04:00 Ordered Magnesium AM LABS Lab 09/09/19 04:00 Ordered Phosphorus AM LAB S Lab 09/09/19 04:00 Ordered Procalcitonin AM LABS Lab 09/09/19 04:00 Ordered Labs from last 24 hours 09/08/19 09/08/19 05:38 05:38 WBC 14.4 H RBC 4.48 Hgb 12.6 Hct 41.2 MCV 92.0 MCH 28.1 MCHC 30.6 RDW 13.3 Plt Count 370 MPV 11.2 H Neut % (Auto) 87.4 Lymph % (Auto) 4.4 [place] % (Auto) 7.1 Eos % (Auto) 0.0 Baso % (Auto) 0.1 Neut # (Auto) 12.6 H Lymph # (Auto) 0.[address] # (Auto) 1.0 H Eos # (Auto) 0.0 Baso # (Auto) 0.0 Nucleated RBC % (a uto) 0 Nucleated RBCs # 0.0 Sodium 145 Potassium 3.7 Chloride 101 Carbon Dioxide 33 H Anion Gap 14.7 BUN 26 H Creatinine 0.4 L Glucose 98 Calcium 9.6 Phosphorus 3.0 Magnesium 2.3 Total Bilirubin 0.3 AST 16 ALT 19 Alkaline Phosphata se 95 Total Protein 6.1 L Albumin 4.2 Globulin 1.9 Procalcitonin 0.06 Vitals: Last Vital Signs Temp 98.3 F 09/08/19 16:20 Pulse 93 09/08/19 16:20 Resp 18 09/08/19 16:20 BP 139/67 09/08/19 16:20 Pulse Ox 97 09/08/19 16:20 Discharge Plan Discharge Patient Disposition: Hospice - Home Condition: Stable Prescriptions: New doxycycline monohydrate 100 mg Tablet 100 mg PO BID 7 Days Qty: 14 RF: 0 prednisone 10 mg tablet 10 mg PO DAILY 25 Days Qty: 53 RF: 0 Continued hydralazine 10 mg tablet 10 mg PO TID RF: 0 levothyroxine 100 mcg tablet 100 mcg PO DAILY RF: 0 Bevespi Aerosphere 9-4.8 mcg HFA aerosol inhaler 2 puff INHALATION BID RF: 0 atorvastatin 40 mg Tablet 40 mg PO BEDTIME Qty: 30 RF: 0 ipratropium-albuterol 0.5 mg-3 mg(2.5 mg base)/3 mL Solution For Nebulization 3 ml inhalation Q6H.RESPIRATORY Qty: 150 RF: 0 amlodipine 10 mg Tablet 10 mg PO DAILY Qty: 30 RF: 0 aspirin 81 mg Tablet,Chewable 81 mg PO DAILY Qty: 30 RF: 0 furosemide 20 mg Tablet 20 mg PO DAILY@0800 PRN (Reason: Edema) Qty: 15 RF: 0 Ativan 0.5 mg Tablet 0.5 mg PO QID PRN (Reason: Anxiety) RF: 0 Milk of Magnesia 400 mg/5 mL Suspension 400 mg PO DAILY PRN (Reason: Constipation) RF: 0 Dulcolax (bisacodyl) 10 mg Suppository 10 mg [place] DAILY PRN (Reason: Constipation) RF: 0 Dulcolax (bisacodyl) 5 mg Tablet,Delayed Release (Dr/Ec) 10 mg PO DAILY PRN (Reason: Constipation) RF: 0 Fleet Enema 1 applic [place] PRN RF: 0 acetaminophen 325 mg Tablet 650 mg PO QID PRN (Reason: Fever Or Pain) RF: 0 ProAir HFA 90 mcg/actuation Hfa Aerosol Inhaler 2 puff INHALATION 6XD PRN (Reason: Shortness Of Breath) RF: 0 Discontinued prednisone 20 mg Tablet 40 mg PO DAILY Qty: 5 RF: 0 Discharge Orders: Discharge Order (Routine); Ordered 09/08/19 Ordered By: Israel Daniels Discharge Diet: Regular Discharge Activity: Resume usual activity Patient Instructions: Doxycycline (By mouth), Prednisone (By mouth) Activity Restrictions/Additional Instructions: Discharge home on home hospice Discharge Attestations Time Spent in Discharge Care*: less than 30 min Quality Metrics Clinical Quality Measures During this hospital stay, did patient experience: None Coding Level of Care Code Acute Recreational Leader for Zehra Pina Diagnoses Acute respiratory failure J96.01; J96.02 Respiratory failure complication: hypoxia and hypercapnia COPD (chronic obstructive pulmonary disease) J44.1 COPD type: COPD with acute exacerbation Dysphagia R13.12 Dysphagia type: oropharyngeal phase 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
--- NOTE | 2019-09-08 19:54 | PC.RESP ---
pt sleeping no respiratory distress noted at this time
[2019-09-08] MEDS: atorvastatin 40 mg Tablet PO (21:35)
[2019-09-09 01:50] VITALS: BP 150/66; PULSE 78; RESP 18; TEMP 36.6; O2SAT 93
[2019-09-09 06:00] VITALS: BP 170/69; PULSE 76; RESP 16; TEMP 37.1; O2SAT 94
[2019-09-09 07:33] VITALS: BP 156/65; PULSE 85; RESP 16; TEMP 36.6; O2SAT 94
[2019-09-09] MEDS: ipratropium-albuterol 3 mL Neb INHALATION (08:15)
[2019-09-09 08:16] VITALS: PULSE 83; RESP 20; O2SAT 95
[2019-09-09 08:23] VITALS: PULSE 85
[2019-09-09] MEDS: enoxaparin 40 mg/0.4 mL Syringe SUBCUT (09:14)
[2019-09-09] MEDS: hyDRALAzine 10 mg Tablet PO (09:14)
[2019-09-09] MEDS: FUROsemide 40 mg Tablet PO (09:14)
[2019-09-09] MEDS: levothyroxine 100 mcg Tablet PO (09:14)
[2019-09-09] MEDS: aspirin 81 mg Chew Tablet PO (09:14)
[2019-09-09] MEDS: doxycycline 100 mg Tablet PO (09:14)
[2019-09-09] MEDS: predniSONE 20 mg Tablet 40 MG PO (09:14)
[2019-09-09] MEDS: amlodipine 10 mg Tablet PO (09:14)
[2019-09-09 11:00] VITALS: BP 147/64; PULSE 91; RESP 16; TEMP 36.7; O2SAT 96
--- NOTE | 2019-09-09 11:17 | P.PN_ITS ---
Subjective Subjective: Interval history: Anay was not discharged yesterday secondary to some transportation issues. Today she was sleeping when I entered the room, when awoken she had no specific complaints. Confusion noted. Medications: Reviewed: Yes Vitals/I&O/Wt Last Vital Signs Temp 97.8 F 09/09/19 07:33 Pulse 85 09/09/19 08:23 Resp 20 H 09/09/19 08:16 BP 156/65 09/09/19 07:33 Pulse Ox 95 09/09/19 08:16 09/08/19 09/09/19 09/09/19 22:59 06:59 14:59 Intake Total 530 / 530 150 / 150 Balance 530 / 530 150 / 150 Weight last 48 hrs Weight 54.749 kg Weight 53.524 kg Physical Exam Narrative: EXAM NARRATIVE: General exam no apparent distress Cardiovascular regular rate and rhythm Lungs clear but with diminished breath sounds bilaterally Abdomen is soft, positive bowel sounds, obese Extremities no cyanosis clubbing or edema Data Micro: Micro: Microbiology 09/06/19 10:30 Urine Culture - Fi nal Unknown Source A&P Assessment and plan (1) Acute respiratory failure: Secondary to COPD exacerbation. Improved. Receiving pulmonary toilet, doxycycline Status: Acute Qualifiers: Respiratory failure complication: hypoxia and hypercapnia Qualified Code(s): J96.01 - Acute respiratory failure with hypoxia; J96.02 - Acute respiratory failure with hypercapnia Code(s): J96.00 - Acute respiratory failure, unspecified whether with hypoxia or hypercapnia (2) COPD (chronic obstructive pulmonary disease): Improved. Status: Acute Qualifiers: COPD type: COPD with acute exacerbation Qualified Code(s): J44.1 - Chronic obstructive pulmonary disease with (acute) exacerbation Code(s): J44.9 - Chronic obstructive pulmonary disease, unspecified (3) Dysphagia: Status: Acute Qualifiers: Dysphagia type: oropharyngeal phase Qualified Code(s): R13.12 - Dysphagia, oropharyngeal phase Code(s): R13.10 - Dysphagia, unspecified (4) 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): Back to baseline Transitioning to hospice Status: Acute Code(s): I63.9 - Cerebral infarction, unspecified; R41.89 - Other symptoms and signs inv olving cognitive functions and awareness Additional A&P Information Additional A&P Information: Discharge today Attestations Medical Necessity Statement*: Not applicable, discharging to hospice today Coding Level of Care Code Acute Steam Tank Operator for Chg Fwd Diagnoses Acute respiratory failure J96.01; J96.02 Respiratory failure complication: hypoxia and hypercapnia COPD (chronic obstructive pulmonary disease) J44.1 COPD type: COPD with acute exacerbation Dysphagia R13.12 Dysphagia type: oropharyngeal phase 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
== END 2019-09-09 12:00 | disposition hospice, home (50) | DRG 189 ==
LOC: ER 19:03 → ICU 09-06 02:10 → MEDSURG 09-07 17:35
PROVIDERS: Family Medicine; Admitting Provider Hospitalist; Emergency Provider Emergency Medicine; Family Provider Family Medicine; PCP Family Medicine; Visit Provider Internal Medicine
DX: J96.02 Acute respiratory failure with hypercapnia (principal); J69.0 Pneumonitis due to inhalation of food and vomit; I50.31 Acute diastolic (congestive) heart failure; J44.1 Chronic obstructive pulmonary disease with (acute) exacerbation; J96.01 Acute respiratory failure with hypoxia; Z87.891 Personal history of nicotine dependence; Z86.73 Personal history of transient ischemic attack (TIA), and cerebral infarction without residual deficits; E05.00 Thyrotoxicosis with diffuse goiter without thyrotoxic crisis or storm; R13.12 Dysphagia, oropharyngeal phase; F03.90 Unspecified dementia, unspecified severity, without behavioral disturbance, psychotic disturbance, mood disturbance, and anxiety; Z51.5 Encounter for palliative care; R41.89 Other symptoms and signs involving cognitive functions and awareness; I11.0 Hypertensive heart disease with heart failure
CPT/HCPCS: 12345; 36415; 36416; 36600; 71045; 71275; 80048; 80053; 81001; 82803; 82962; 83605; 83735; 83880; 84100; 84145; 84484; 85025; 85378; 85610; 87040; 87086; 87804; 93005; 94640; 94660; 96372; 96374; 96375; 97110; 97161; 97167; 97530; 97535; 99283; A9270; J0696; J1650; J1940; J2060; J2405; J2930; J3490; J7050; J7512; J7799; Q9967